=== PATIENT | male | born 1960 | race Caucasian/White ===

== ENCOUNTER 2017-02-08 10:01 | Inpatient (IN) | payer MEDICAID ==
--- NOTE | 2017-02-08 10:13 | EDPHY ---
H & P Time Seen by Provider: 02/08/17 10:12 HPI/ROS: CHIEF COMPLAINT: Cough and shortness of breath HISTORY OF PRESENT ILLNESS: This 56-year-old man has been exposed to his who is currently hospitalized with respiratory infection. He has chronic oxygen -dependent COPD use easily using 4 L. he states that he has a a cough for 3-4 days with increasing shortness of breath and intermittent fevers. Symptoms today are severe but not associated with leg swelling or hemoptysis. It is worse with exertion or trying to lie flat. Denies chest pain. REVIEW OF SYSTEMS: Eye: no change in vision ENT: no sore throat Cardiac: no chest pain or syncope Pulmonary: HPI Abdomen: no vomiting, diarrhea, abdominal pain Musculoskeletal: Chronic back and neck pain unchanged Skin: no rash Neuro: no headache Constitutional: no fever : no urinary symptoms A comprehensive 10 point review of systems is otherwise negative aside from elements mentioned in the history of present illness. PAST MEDICAL HISTORY: Oxygen-dependent COPD, hypertension, chronic back and neck pain Social history: Lives in [place] in the [facility] General Appearance: Alert and conversant, cooperative. Eyes: No scleral icterus. ENT, Mouth: Normal mucous membranes. Respiratory: Decreased lung sounds bilaterally with expiratory wheezing. Mildly tachypneic. Cardiovascular: Regular rate and rhythm. Gastrointestinal: Abdomen is soft and non tender. Neurological: Alert and oriented x3. Normally conversant. Face symmetric, normal movement and sensation in all extremities. Skin: Warm and dry, no rashes. Musculoskeletal: No peripheral edema and no joint swelling. No calf tenderness. Psychiatric: Not agitated. Emergency Department course/MDM: Initially treated with supplemental oxygen, DuoNeb and IV Solu-Medrol for COPD exacerbation. 1130: Re-evaluated, will admit for inpatient treatment of left lower lobe pneumonia in a patient who at baseline has oxygen dependent COPD. Ceftriaxone 1 g and azithromycin 500 mg. Continue nebulizer treatments and steroids supplemental oxygen. 1235: Lactate negative, does not have sepsis or severe sepsis. Smoking Status: Current every day smoker Constitutional: Initial Vital Signs Temperature (C) 36.9 C 02/08/17 10:04 Heart Rate 114 H 02/08/17 10:04 Respiratory Rate 20 02/08/17 10:04 Blood Pressure 154/103 H 02/08/17 10:04 O2 Sat (%) 86 L 02/08/17 10:04 O2 Delivery Mode Nasal Cannula O2 (L/minute) 4 Allergies/Adverse Reactions: HAYFEVER Allergy (Mild, Uncoded 03/13/13 16:43) NASAL CONGESTION Home Medications: Medication Instructions Recorded Albuterol [Proventil Inhaler HFA 2 puffs IH Q4 PRN 01/19/16 (*)] DILTIAZEM HCL [DILTIAZEM 24HR ER] 180 mg PO DAILY 01/19/16 Diazepam [Valium 10 MG (*)] 10 mg PO HS 01/19/16 Fluticasone/Salmeter 250/50Mcg 1 puffs IH BID 01/19/16 [Advair 250/50 (*)] Ipratropium [Atrovent Neb (*)] 0.5 mg IH Q6 PRN 01/19/16 Oxycodone HCl [Roxicodone] 30 mg PO Q6 PRN 01/19/16 Tizanidine HCl [Zanaflex] 4 mg PO TID PRN 01/19/16 morphINE SR [Ms Contin/Oramorph 100 mg PO BID 01/19/16 100 mg (*)] Polyethylene Glycol 3350 [Miralax 17 gm PO DAILY PRN #0 pkt 03/17/16 17 gm (*)] Lidocaine [Lidoderm] 1 each TP 02/08/17 Medical Decision Making - Diagnostics Imaging: Chest x-ray reviewed personally by myself shows left lower lobe pneumonia, reviewed with Dr. Cortez. Differential Diagnosis: Differential diagnosis considered for shortness of breath including but not limited to pulmonary infectious process, COPD, asthma, pulmonary embolus and congestive heart failure. Consult/Admit Bed Type: [place] [id number] - Data Points Laboratory Results: Laboratory Results 02/08/17 10:25 02/08/17 10:25 02/08/17 02/08/17 02/08/17 10:25 10:25 10:25 WBC RBC Hgb Hct MCV MCH MCHC RDW Plt Count MPV Neut % (Auto) Lymph % (Auto) [place] % (Auto) Eos % (Auto) Baso % (Auto) Nucleat RBC Rel Count Absolute Neuts (auto) Absolute Lymphs (auto) Absolute Monos (auto) Absolute Eos (auto) Absolute Basos (auto) Absolute Nucleated RBC Immature Gran % Immature Gran # PT 12.0 SEC SEC (12.0-15.0) INR 0.90 (0.83-1.16) APTT 29.4 SEC SEC (23.0-38.0) Sodium 136 mEq/L mEq/L (134-144) Potassium 4.5 mEq/L mEq/L (3.5-5.2) Chloride 99 mEq/L mEq/L (97-110) Carbon Dioxide 28 mEq/l mEq/l (22-31) Anion Gap 9 mEq/L mEq/L (8-16) BUN 4 mg/dL L mg/dL (7-23) Creatinine 0.5 mg/dL L mg/dL (0.7-1.3) Estimated GFR > 60 Glucose 114 mg/dL H mg/dL (70-100) Calcium 9.7 mg/dL mg/dL (8.5-10.4) Total Bilirubin 1.0 mg/dL mg/dL (0.1-1.4) 02/08/17 10:25 WBC 11.84 10^3/uL H 10^3/uL (3.80-9.50) RBC 4.56 10^6/uL 10^6/uL (4.40-6.38) Hgb 14.9 g/dL g/dL (13.7-17.5) Hct 42.6 % % (40.0-51.0) MCV 93.4 fL fL (81.5-99.8) MCH 32.7 pg pg (27.9-34.1) MCHC 35.0 g/dL g/dL (32.4-36.7) RDW 12.8 % % (11.5-15.2) Plt Count 300 10^3/uL 10^3/uL (150-400) MPV 11.0 fL fL (8.7-11.7) Neut % (Auto) 75.9 % H % (39.3-74.2) Lymph % (Auto) 10.6 % L % (15.0-45.0) [place] % (Auto) 9.9 % % (4.5-13.0) Eos % (Auto) 2.8 % % (0.6-7.6) Baso % (Auto) 0.5 % % (0.3-1.7) Nucleat RBC Rel Count 0.0 % % (0.0-0.2) Absolute Neuts (auto) 8.99 10^3/uL H 10^3/uL (1.70-6.50) Absolute Lymphs (auto) 1.25 10^3/uL 10^3/uL (1.00-3.00) Absolute Monos (auto) 1.17 10^3/uL H 10^3/uL (0.30-0.80) Absolute Eos (auto) 0.33 10^3/uL 10^3/uL (0.03-0.40) Absolute Basos (auto) 0.06 10^3/uL 10^3/uL (0.02-0.10) Absolute Nucleated RBC 0.00 10^3/uL 10^3/uL (0-0.01) Immature Gran % 0.3 % % (0.0-1.1) Immature Gran # 0.04 10^3/uL 10^3/uL (0.00-0.10) PT INR APTT Sodium Potassium Chloride Carbon Dioxide Anion Gap BUN Creatinine Estimated GFR Glucose Calcium Total Bilirubin Medications Given: Discontinued Medications Albuterol/Ipratropium (Duoneb) 3 ml IH EDNOW ONE Stop: 02/08/17 10:22 Last Admin: 02/08/17 10:54 Dose: 3 ml Sodium Chloride (Ns) 500 mls @ 0 mls/hr IV ONCE ONE PRN Reason: As Directed Stop: 02/08/17 10:22 Last Admin: 02/08/17 11:30 Dose: 500 mls Azithromycin 500 mg/ Dextrose 255 mls @ 255 mls/hr IV EDNOW ONE PRN Reason: Protocol Stop: 02/08/17 12:27 Last Admin: 02/08/17 13:11 Dose: 255 mls Ceftriaxone Sodium/Dextrose (Rocephin 1 Gm (Premix)) 50 mls @ 100 mls/hr IV EDNOW ONE PRN Reason: Protocol Stop: 02/08/17 11:57 Last Admin: 02/08/17 12:15 Dose: 50 mls Methylprednisolone Sodium Succinate (Solu-Medrol) 125 mg IVP EDNOW ONE Stop: 02/08/17 10:22 Last Admin: 02/08/17 10:53 Dose: 125 mg Departure - Departure Disposition: [facility] Clinical Impression: Chronic obstructive pulmonary disease with acute exacerbation Pneumonia Qualifiers: Pneumonia type: due to unspecified organism Laterality: left Lung location: lower lobe of lung Qualified Code(s): J18.1 - Lobar pneumonia, unspecified organism Condition: Fair
[2017-02-08] MEDS ORDERED: IPRATROPIUM/ALBUTEROL 3 ML DEYVIAL IH ONE (10:21)
[2017-02-08] MEDS ORDERED: methylPREDNISolone SOD SUCC 125 MG/2 ML VIAL IVP ONE (10:21)
[2017-02-08] MEDS ORDERED: NS 500 ML IV ONE (10:21)
[2017-02-08 10:35] LABS: % IMMATURE GRANULYOCYTES 0.3 % (0.0-1.1); ABSOLUTE IMMATURE GRANULOCYTES 0.04 10^3/uL (0.00-0.10); ADD DIFF? NO; ADD MORPH? NO; ADD SCAN? NO; ATYPICAL LYMPHOCYTE FLAG 10 (0-99); FRAGMENT RBC FLAG 0 (0-99); HEMATOCRIT 42.6 % (40.0-51.0); HEMOGLOBIN 14.9 g/dL (13.7-17.5); LEFT SHIFT FLG 0 (0-99); LIPEMIA HEMOLYSIS FLAG 90 (0-99); MEAN CELL HEMOGLOBIN 32.7 pg (27.9-34.1); MEAN CELL VOLUME 93.4 fL (81.5-99.8); PLATELET CLUMPS FLAG 10 (0-99); PLATELET COUNT 300 10^3/uL (150-400); RED BLOOD CELL COUNT 4.56 10^6/uL (4.40-6.38); RED CELL DISTRIBUTION WIDTH 12.8 % (11.5-15.2)
[2017-02-08 10:57] LABS: ANION GAP 9 mEq/L (8-16); CALCIUM 9.7 mg/dL (8.5-10.4); CARBON DIOXIDE 28 mEq/l (22-31); CHLORIDE 99 mEq/L (97-110); CREATININE 0.5 mg/dL (0.7-1.3); GLOMERULAR FILTRATION RATE > 60; GLUCOSE 114 mg/dL (70-100); POTASSIUM 4.5 mEq/L (3.5-5.2); SODIUM 136 mEq/L (134-144)
[2017-02-08] MEDS ORDERED: AZITHROMYCIN IV 500 MG in D5W 250 ML IV ONE (11:28)
[2017-02-08 11:43] LABS: APTT 29.4 SEC (23.0-38.0); INR 0.9 (0.83-1.16)
[2017-02-08] MEDS ORDERED: ONDANSETRON 4 MG/2 ML VIAL IVP PRN (11:47)
[2017-02-08] MEDS ORDERED: ONDANSETRON DISINTEGRATING 4 MG TAB PO PRN (11:47)
[2017-02-08] MEDS ORDERED: ACETAMINOPHEN 325 MG TAB PO PRN (11:47)
[2017-02-08] MEDS ORDERED: NS 1,000 ML IV ONE (13:43)
[2017-02-08] MEDS ORDERED: ALBUTEROL 3 ML DEYVIAL IH PRN (13:46)
--- NOTE | 2017-02-08 14:26 | GHP ---
[f rep st] HISTORY AND PHYSICAL DATE OF ADMISSION: 02/08/2017 CHIEF COMPLAINT: Shortness of breath. HISTORY OF PRESENT ILLNESS: A 56-year-old male with oxygen-dependent COPD, who presents to the [facility] with complaints of 4 days of progressing shortness of breath and cough. Patient ochoa s recently been a visitor in the hospital for his significant other who has been admitted with pneum onia. Patient noted that he was additionally having increasing shortness of breath and they were at elevation. He did come down to [place] to keep his significant other company in the hospital and n oted, in the last 24 hours, that his shortness of breath even at lower elevation has been markedly s evere. He describes a worsening of a chronic cough now productive of some discolored sputum. Has h ad some subjective fevers and chills. Denies any hemoptysis. Patient reports using approximately 4 L of supplemental oxygen up in [place] and at that level has oxygen saturations in the high 80s, noted that he was requiring even more oxygen as he came down here. Patient denies any nausea or vom iting. Denies abdominal pain. Denies diarrhea, denies rashes, denies dysuria, hematuria, headache, or vision changes. PAST MEDICAL HISTORY: 1. COPD oxygen dependent on 4 L. 2. Chronic hypoxic respiratory failure secondary to COPD. 3. Hypertension. 4. Anxiety. 5. History of alcohol induced pancreatitis. 6. 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 SOCIAL HISTORY: Patient has markedly decreased his tobacco to 3-4 cigarettes a day. Previously a 4 0-50 pack-year history of smoking. Patient tells me he drinks intermittent alcohol, takes marijuana eatables regularly. FAMILY HISTORY: Positive for colon cancer in his brother, negative for any known lung disease. ADVANCED DIRECTIVES: Patient is full cor, full tube. He would want his significant other to be his medical decision maker. REVIEW OF SYSTEMS: A 10-point review of systems is negative with the exception of that reported in the HPI. PHYSICAL EXAMINATION: VITAL SIGNS: Blood pressure 154/103, heart rate 114, respiratory rate 20, sa turating 86% on room air, 36.9. GENERAL: This is a thin-appearing male in mild respiratory distres s. Patient has a visible tremor. HEENT: Notable for dry mucous membranes. Eye exam is negative fo r any icterus. CARDIAC: Patient is tachycardic but regular. PULMONARY: Patient has diminished br eath sounds at the bilateral bases. Has expiratory wheezing, left greater than right. GASTROINTEST INAL: Positive bowel sounds. ABDOMEN: Soft and nontender in all 4 quadrants. MUSCULOSKELETAL: N egative for any lower extremity edema. SKIN: Is negative for any rashes. NEUROLOGIC: Patient is a lert and oriented x3. PSYCHIATRIC: He is pleasant and cooperative on interview and examination. DATA: White count is 12, hematocrit 42.6, platelet count of 300, creatinine 0.5, sodium 136, glucos e 114. Chest x-ray which I personally reviewed and interpreted, shows a new left-sided lower lobe infiltrat e with hyperexpansion consistent with his known COPD. ASSESSMENT AND PLAN: This is a 56-year-old male with a history of chronic obstructive pulmonary dis ease presenting with new cough and hypoxia. 1. Sepsis. Patient is presenting with tachycardia, leukocytosis and presumed pulmonary source. Wi ll obtain blood cultures in the emergency department. Start empiric IV antibiotics and fluid resusc itate with normal saline. 2. Community-acquired pneumonia. Patient's significant other is also on my medical team. We have confirmed that she does not have influenza, no clear pathogen identified. Will follow blood culture s and check influenza on patient. 3. Acute on chronic hypoxic respiratory failure secondary to COPD and community-acquired pneumonia. Will aggressively treat with inhaled beta agonists on steroids. Patient is quite wheezy on examin ation. Will additionally treat with oral prednisone and IV antibiotics. 4. History of alcohol abuse with active tremor on examination. Patient stayed the night in the [facility] so I know he has been over 12 hours away from alcohol. I am concerned he is not sharing an ac curate alcohol history with me. Will place a CIWA protocol in case he develops alcohol withdrawal an d monitor. 5. Chronic pain with continuous narcotic dependency. Will continue patient's home medications once reconciled. 6. Hypertension. Will continue his home medications once reconciled. Prophylaxis with Lovenox. DIET: Regular. DISPOSITION: I expect greater than 2 midnights as the patient is presenting with advanced COPD and a new diagnosis of community-acquired pneumonia and sepsis. I have discussed the case with the [facility] physician. Patient will be triaged to the medical-surgical floor for care. /[id number]/MODL
[2017-02-08] MEDS ORDERED: LORazepam 1 MG TAB PO PRN (15:29)
[2017-02-08] MEDS ORDERED: chlordiazePOXIDE 25 MG CAP PO ONE (15:29)
[2017-02-08] MEDS ORDERED: POLYETHYLENE GLYCOL 3350 17 GM PKT PO PRN (15:31)
[2017-02-08] MEDS: guaiFENesin 600 MG TAB.ER PO SCH ×2 (15:57→22:03)
[2017-02-08] MEDS: CALCIUM CARBONATE 500 MG TAB PO SCH ×2 (15:58→22:02)
[2017-02-08] MEDS: BUDESONIDE 0.5 MG/2 ML AMPUL.NEB IH SCH ×2 (16:08→20:40)
[2017-02-08] MEDS: IPRATROPIUM/ALBUTEROL 3 ML DEYVIAL IH SCH ×2 (16:30→20:40)
[2017-02-08] MEDS: NICOTINE 14 MG/24 HR PATCH TD SCH (16:42)
[2017-02-08] MEDS: PATCH REMOVAL 1 EA PATCH TD SCH (20:09)
[2017-02-08] MEDS: FLUTICASONE/SALMETER 250/50MCG DISKUS IH SCH (20:44)
[2017-02-08] MEDS: morphINE SR 60 MG TAB PO SCH (22:02)
[2017-02-08] MEDS: DIAZEPAM 5 MG TAB PO SCH (22:03)
[2017-02-08] MEDS: CHOLECALCIFEROL VIT D3 1,000 UNITS TAB PO SCH (22:03)
[2017-02-09 05:07] LABS: % IMMATURE GRANULYOCYTES 0.6 % (0.0-1.1); ABSOLUTE IMMATURE GRANULOCYTES 0.06 10^3/uL (0.00-0.10); ADD DIFF? NO; ADD MORPH? NO; ADD SCAN? NO; ATYPICAL LYMPHOCYTE FLAG 0 (0-99); FRAGMENT RBC FLAG 0 (0-99); HEMATOCRIT 38.2 % (40.0-51.0); HEMOGLOBIN 13.2 g/dL (13.7-17.5); LEFT SHIFT FLG 20 (0-99); LIPEMIA HEMOLYSIS FLAG 90 (0-99); MEAN CELL HEMOGLOBIN 32.3 pg (27.9-34.1); MEAN CELL HEMOGLOBIN CONCENTR. 34.6 g/dL (32.4-36.7); MEAN CELL VOLUME 93.4 fL (81.5-99.8); MEAN PLATELET VOLUME 11.1 fL (8.7-11.7); PLATELET CLUMPS FLAG 0 (0-99); PLATELET COUNT 260 10^3/uL (150-400); RED BLOOD CELL COUNT 4.09 10^6/uL (4.40-6.38); RED CELL DISTRIBUTION WIDTH 12.7 % (11.5-15.2)
[2017-02-09 05:19] LABS: ANION GAP 6 mEq/L (8-16); CALCIUM 9.1 mg/dL (8.5-10.4); CARBON DIOXIDE 27 mEq/l (22-31); CHLORIDE 105 mEq/L (97-110); CREATININE 0.4 mg/dL (0.7-1.3); GLOMERULAR FILTRATION RATE > 60; GLUCOSE 183 mg/dL (70-100); POTASSIUM 3.6 mEq/L (3.5-5.2); SODIUM 138 mEq/L (134-144)
[2017-02-09] MEDS: IPRATROPIUM/ALBUTEROL 3 ML DEYVIAL IH SCH ×4 (05:37→21:33)
[2017-02-09] MEDS: CALCIUM CARBONATE 500 MG TAB PO SCH ×3 (08:30→21:06)
[2017-02-09] MEDS: CHOLECALCIFEROL VIT D3 1,000 UNITS TAB PO SCH ×2 (08:30→21:06)
[2017-02-09] MEDS: DILTIAZEM CD 180 MG CAP PO SCH (08:30)
[2017-02-09] MEDS: morphINE SR 60 MG TAB PO SCH ×2 (08:30→21:06)
[2017-02-09] MEDS: predniSONE 20 MG TAB PO SCH (08:30)
[2017-02-09] MEDS: guaiFENesin 600 MG TAB.ER PO SCH ×2 (08:36→21:07)
[2017-02-09] MEDS: LIDOCAINE 5% 1 EA PATCH TD SCH (08:40)
[2017-02-09] MEDS: NICOTINE 14 MG/24 HR PATCH TD SCH (08:41)
[2017-02-09] MEDS: ENOXAPARIN 40 MG/0.4 ML SYR SC SCH (08:43)
[2017-02-09] MEDS ORDERED: Herbals/Supplements -Info Only PO SCH (09:00)
[2017-02-09] MEDS: AZITHROMYCIN IV 500 MG in D5W 250 ML IV SCH (09:30)
[2017-02-09] MEDS: BUDESONIDE 0.5 MG/2 ML AMPUL.NEB IH SCH ×2 (11:28→21:32)
[2017-02-09] MEDS: FLUTICASONE/SALMETER 250/50MCG DISKUS IH SCH ×2 (11:29→21:37)
[2017-02-09] MEDS ORDERED: MAGNESIUM HYDROXIDE 30 ML UDCUP PO PRN (15:07)
[2017-02-09] MEDS ORDERED: LACTULOSE 20 GM/30 ML UDCUP PO PRN (15:07)
[2017-02-09] MEDS ORDERED: BISACODYL 10 MG SUPP PR PRN (15:07)
[2017-02-09] MEDS: PANTOPRAZOLE SODIUM 40 MG TAB PO SCH (15:35)
--- NOTE | 2017-02-09 15:43 | HOSPPROG ---
Hospitalist Progress Note Assessment/Plan: This is a 56-year-old male with a history of chronic obstructive pulmonary disease presenting with new cough and hypoxia. # Sepsis- Patient is presenting with tachycardia, leukocytosis and presumed pulmonary source- tachycardia and leukocytosis 9.6 both improved overnight blood cultures NGTD - continue IV fluid resuscitation until p.o. intake adequate - continue empiric antibiotics # Community-acquired pneumonia - chest x-ray( personally reviewed and interpreted) left-sided infiltrate- influenza negative - continue IV ceftriaxone azithromycin - follow blood cultures # Acute on chronic hypoxic respiratory failure secondary to COPD and community- acquired pneumonia- subjective dyspnea improved overnight at rest- wheezing improved but not resolved- oxygen saturations 94% on 2 L - continue aggressive inhaled pulmonary toilet - continue p.o. prednisone - continue empiric antibiotics - suspect patient's oxygen requirements will be higher at elevation- he has concentrator at home are ready # History of alcohol abuse with active tremor on admission- empirically given Librium bolus of 50 mg upon arrival to the floor- tremor improved this morning - continue p.r.n. CIWA protocol # Chronic pain with continuous narcotic dependency- continue patient's home medications - adding aggressive bowel regimen today . # Hypertension- continue his home medications # Prophylaxis with Lovenox # diet regular # disposition greater than 2 midnights the patient presents with oxygen- dependent COPD in new diagnosis sepsis with community-acquired pneumonia requires more aggressive pulmonary care and monitoring I have discussed the case with the RN- we will add a more aggressive bowel regimen and Protonix is prednisone upset the patient's stomach when he takes it we anticipate disposition tomorrow with his who is also hospitalized for pneumonia. Subjective: breathing at rest markedly improved remains very dyspneic walking to the bathroom Objective: Vital Signs Temp Pulse Resp BP Pulse Ox 36.3 C 97 20 141/76 H 94 02/09/17 12:00 02/09/17 12:00 02/09/17 12:00 02/09/17 12:00 02/09/17 12:00 Laboratory Results 02/09/17 04:45 02/09/17 04:45 02/08/17 02/09/17 02/10/17 05:59 05:59 05:59 Intake Total 1500 Balance 1500 PT 12.0 SEC (12.0-15.0) 02/08/17 10:25 INR 0.90 (0.83-1.16) 02/08/17 10:25 - Physical Exam Constitutional: cachectic Eyes: anicteric sclera Ears, Nose, Mouth, Throat: moist mucous membranes Cardiovascular: regular rate and rhythym Respiratory: no respiratory distress, expiratory wheeze, other ( improved) Gastrointestinal: normoactive bowel sounds Genitourinary: no bladder fullness Skin: warm, normal color Musculoskeletal: No asymmetric calves Neurologic: AAOx3, other ( diminished tremor) Psychiatric: interacting appropriately, not anxious Lymph, Heme, Immunologic: no cervical LAD ICD10 Worksheet Patient Problems: Problems Problem Status Onset Chronic obstructive pulmonary disease with acute exacerbation Acute Pneumonia Acute Back pain Acute
[2017-02-09] MEDS: PATCH REMOVAL 1 EA PATCH TD SCH (19:51)
[2017-02-09] MEDS: SENNOSIDES/DOCUSATE SODIUM TAB PO SCH (21:06)
[2017-02-09] MEDS: DIAZEPAM 5 MG TAB PO SCH (21:06)
[2017-02-10] MEDS: IPRATROPIUM/ALBUTEROL 3 ML DEYVIAL IH SCH ×4 (05:28→21:40)
[2017-02-10 05:45] LABS: % IMMATURE GRANULYOCYTES 0.4 % (0.0-1.1); ABSOLUTE IMMATURE GRANULOCYTES 0.05 10^3/uL (0.00-0.10); ADD DIFF? NO; ADD MORPH? NO; ADD SCAN? NO; ATYPICAL LYMPHOCYTE FLAG 10 (0-99); FRAGMENT RBC FLAG 0 (0-99); HEMATOCRIT 38.7 % (40.0-51.0); HEMOGLOBIN 13.4 g/dL (13.7-17.5); LEFT SHIFT FLG 0 (0-99); LIPEMIA HEMOLYSIS FLAG 90 (0-99); MEAN CELL HEMOGLOBIN CONCENTR. 34.6 g/dL (32.4-36.7); MEAN CELL VOLUME 92.4 fL (81.5-99.8); MEAN PLATELET VOLUME 10.7 fL (8.7-11.7); PLATELET CLUMPS FLAG 0 (0-99); PLATELET COUNT 303 10^3/uL (150-400); RED BLOOD CELL COUNT 4.19 10^6/uL (4.40-6.38)
[2017-02-10 05:55] LABS: ANION GAP 8 mEq/L (8-16); CALCIUM 9.5 mg/dL (8.5-10.4); CARBON DIOXIDE 28 mEq/l (22-31); CHLORIDE 105 mEq/L (97-110); CREATININE 0.5 mg/dL (0.7-1.3); GLOMERULAR FILTRATION RATE > 60; GLUCOSE 98 mg/dL (70-100); MAGNESIUM 2.1 mg/dL (1.6-2.3); POTASSIUM 3.8 mEq/L (3.5-5.2); SODIUM 141 mEq/L (134-144)
--- NOTE | 2017-02-10 08:57 | HOSPPROG ---
Hospitalist Progress Note Assessment/Plan: This is a 56-year-old male with a history of chronic obstructive pulmonary disease presenting with new cough and hypoxia. Today is my first encounter with the patient/chart reviewed. # Sepsis- - wbc increased today to 11.5 (likely secondary to prednisone)/ no longer tachycardic - blood cultures NGTD - dc fluids/ eating and drinking well - continue empiric antibiotics # Community-acquired pneumonia - chest x-ray shows a left-sided infiltrate - continue IV ceftriaxone &azithromycin - follow blood cultures - negative for the influenza # Acute on chronic hypoxic respiratory failure secondary to COPD and community- acquired pneumonia- - 88% on room air - continue aggressive inhaled pulmonary toilet - continue p.o. prednisone - continue empiric antibiotics - suspect patient's oxygen requirements will be higher at elevation- has concentrator at home # History of alcohol abuse with active tremor on admission- empirically given Librium bolus of 50 mg upon arrival to the floor- tremor improved this morning - continue p.r.n. CIWA protocol # Chronic pain with continuous narcotic dependency- continue patient's home medications - bowel regimen . # Hypertension-stable - bp 107/67 # Prophylaxis with Lovenox # diet regular # disposition: hopefully if continues to improve, will dc in the a.m. Subjective: Gerry says he is starting to feel better today/ still short of breath. Objective: Vital Signs Temp Pulse Resp BP Pulse Ox 36.6 C 83 17 107/67 88 L 02/09/17 23:17 02/09/17 23:17 02/09/17 23:17 02/09/17 23:17 02/09/17 23:17 Laboratory Results 02/10/17 05:27 02/10/17 05:27 02/09/17 02/10/17 02/11/17 05:59 05:59 05:59 Intake Total 1500 Balance 1500 PT 12.0 SEC (12.0-15.0) 02/08/17 10:25 INR 0.90 (0.83-1.16) 02/08/17 10:25 - Physical Exam Constitutional: no apparent distress, other (thin) Eyes: PERRL Ears, Nose, Mouth, Throat: hearing normal Cardiovascular: regular rate and rhythym Respiratory: no respiratory distress, reduced air movement (bibasilar) Gastrointestinal: normoactive bowel sounds Skin: warm Musculoskeletal: full muscle strength Neurologic: AAOx3 Psychiatric: interacting appropriately, not anxious ICD10 Worksheet Patient Problems: Problems Problem Status Onset Chronic obstructive pulmonary disease with acute exacerbation Acute Pneumonia Acute Back pain Acute
[2017-02-10] MEDS: LIDOCAINE 5% 1 EA PATCH TD SCH (09:14)
[2017-02-10] MEDS: ENOXAPARIN 40 MG/0.4 ML SYR SC SCH (09:14)
[2017-02-10] MEDS: NICOTINE 14 MG/24 HR PATCH TD SCH (09:14)
[2017-02-10] MEDS: CALCIUM CARBONATE 500 MG TAB PO SCH ×3 (09:15→21:15)
[2017-02-10] MEDS: PANTOPRAZOLE SODIUM 40 MG TAB PO SCH (09:15)
[2017-02-10] MEDS: SENNOSIDES/DOCUSATE SODIUM TAB PO SCH ×2 (09:15→21:16)
[2017-02-10] MEDS: morphINE SR 60 MG TAB PO SCH ×2 (09:15→21:15)
[2017-02-10] MEDS: DILTIAZEM CD 180 MG CAP PO SCH (09:15)
[2017-02-10] MEDS: predniSONE 20 MG TAB PO SCH (09:16)
[2017-02-10] MEDS: CHOLECALCIFEROL VIT D3 1,000 UNITS TAB PO SCH ×2 (09:16→21:15)
[2017-02-10] MEDS: guaiFENesin 600 MG TAB.ER PO SCH ×2 (09:16→21:15)
[2017-02-10] MEDS: AZITHROMYCIN IV 500 MG in D5W 250 ML IV SCH (09:55)
[2017-02-10] MEDS: BUDESONIDE 0.5 MG/2 ML AMPUL.NEB IH SCH ×2 (11:31→21:41)
[2017-02-10] MEDS: FLUTICASONE/SALMETER 250/50MCG DISKUS IH SCH ×2 (11:52→21:41)
[2017-02-10] MEDS: DIAZEPAM 5 MG TAB PO SCH (21:15)
[2017-02-10] MEDS: PATCH REMOVAL 1 EA PATCH TD SCH (23:08)
[2017-02-11 05:11] LABS: % IMMATURE GRANULYOCYTES 0.5 % (0.0-1.1); ABSOLUTE IMMATURE GRANULOCYTES 0.04 10^3/uL (0.00-0.10); ADD DIFF? NO; ADD MORPH? NO; ADD SCAN? NO; ATYPICAL LYMPHOCYTE FLAG 30 (0-99); FRAGMENT RBC FLAG 0 (0-99); HEMATOCRIT 38.6 % (40.0-51.0); HEMOGLOBIN 13.3 g/dL (13.7-17.5); LEFT SHIFT FLG 0 (0-99); LIPEMIA HEMOLYSIS FLAG 90 (0-99); MEAN CELL HEMOGLOBIN 32.5 pg (27.9-34.1); MEAN CELL HEMOGLOBIN CONCENTR. 34.5 g/dL (32.4-36.7); MEAN CELL VOLUME 94.4 fL (81.5-99.8); MEAN PLATELET VOLUME 10.6 fL (8.7-11.7); PLATELET CLUMPS FLAG 20 (0-99); PLATELET COUNT 302 10^3/uL (150-400); RED BLOOD CELL COUNT 4.09 10^6/uL (4.40-6.38)
[2017-02-11 05:37] LABS: POTASSIUM 3.8 mEq/L (3.5-5.2)
[2017-02-11 05:38] LABS: ANION GAP 6 mEq/L (8-16); CALCIUM 9.4 mg/dL (8.5-10.4); CARBON DIOXIDE 27 mEq/l (22-31); CHLORIDE 104 mEq/L (97-110); CREATININE 0.5 mg/dL (0.7-1.3); GLOMERULAR FILTRATION RATE > 60; GLUCOSE 102 mg/dL (70-100); MAGNESIUM 2.1 mg/dL (1.6-2.3); SODIUM 137 mEq/L (134-144)
[2017-02-11] MEDS: IPRATROPIUM/ALBUTEROL 3 ML DEYVIAL IH SCH ×2 (06:14→10:53)
[2017-02-11] MEDS: morphINE SR 60 MG TAB PO SCH (08:11)
[2017-02-11] MEDS: guaiFENesin 600 MG TAB.ER PO SCH (08:11)
[2017-02-11] MEDS: CALCIUM CARBONATE 500 MG TAB PO SCH (08:12)
[2017-02-11] MEDS: DILTIAZEM CD 180 MG CAP PO SCH (08:12)
[2017-02-11] MEDS: PANTOPRAZOLE SODIUM 40 MG TAB PO SCH (08:13)
[2017-02-11] MEDS: CHOLECALCIFEROL VIT D3 1,000 UNITS TAB PO SCH (08:14)
[2017-02-11] MEDS: SENNOSIDES/DOCUSATE SODIUM TAB PO SCH (08:14)
[2017-02-11] MEDS: predniSONE 20 MG TAB PO SCH (08:14)
[2017-02-11] MEDS: NICOTINE 14 MG/24 HR PATCH TD SCH (08:15)
[2017-02-11] MEDS: ENOXAPARIN 40 MG/0.4 ML SYR SC SCH (08:16)
[2017-02-11] MEDS: LIDOCAINE 5% 1 EA PATCH TD SCH (08:17)
[2017-02-11 08:48] VITALS: BP 143/98; RESP 16; TEMP 97.8
[2017-02-11] MEDS ORDERED: THIAMINE HCL 100 MG TAB PO SCH (09:00)
[2017-02-11] MEDS: AZITHROMYCIN IV 500 MG in D5W 250 ML IV SCH (09:20)
--- NOTE | 2017-02-11 09:52 | HOSPPROG ---
Hospitalist Progress Note Assessment/Plan: This is a 56-year-old male with a history of chronic obstructive pulmonary disease presenting with new cough and hypoxia. # Sepsis- - wbc increased to 11.5 (likely secondary to prednisone)/ no longer tachycardic - blood cultures NGTD # Community-acquired pneumonia - chest x-ray shows a left-sided infiltrate - continue IV ceftriaxone &azithromycins - negative for the influenza # Acute on chronic hypoxic respiratory failure secondary to COPD and community- acquired pneumonia- - continue p.o. prednisone - continue empiric antibiotics - suspect patient's oxygen requirements will be higher at elevation- has concentrator at home # History of alcohol abuse with active tremor on admission- empirically given Librium bolus of 50 mg upon arrival to the floor- tremor improved this morning - continue p.r.n. CIWA protocol # Chronic pain with continuous narcotic dependency- continue patient's home medications - bowel regimen . # Hypertension-stable - bp 143/98 # Prophylaxis with Lovenox # diet regular # disposition: dc Subjective: Bryan is feeling much better today. Objective: Vital Signs Temp Pulse Resp BP Pulse Ox 36.6 C 93 16 143/98 H 95 02/11/17 08:43 02/11/17 08:43 02/11/17 08:43 02/11/17 08:43 02/11/17 08:43 Laboratory Results 02/11/17 05:00 02/11/17 05:01 PT 12.0 SEC (12.0-15.0) 02/08/17 10:25 INR 0.90 (0.83-1.16) 02/08/17 10:25 - Physical Exam Constitutional: no apparent distress, not in pain Eyes: PERRL Ears, Nose, Mouth, Throat: hearing normal Cardiovascular: regular rate and rhythym Respiratory: no respiratory distress, reduced air movement (bases) Gastrointestinal: normoactive bowel sounds Skin: warm Musculoskeletal: full muscle strength Neurologic: AAOx3 Psychiatric: interacting appropriately ICD10 Worksheet Patient Problems: Problems Problem Status Onset Chronic obstructive pulmonary disease with acute exacerbation Acute Pneumonia Acute Back pain Acute
--- NOTE | 2017-02-11 10:29 | GDS ---
[f rep st] DISCHARGE SUMMARY DISCHARGE DIAGNOSES: 1. Sepsis. 2. Community-acquired pneumonia. 3. Acute on chronic hypoxic respiratory failure secondary to chronic obstructive pulmonary disease and community-acquired pneumonia. 4. History of alcohol abuse with tremor on admission. 5. Chronic pain with continuous narcotic dependency. 6. Hypertension. HISTORY: Briefly, the patient is a 56-year-old male who has oxygen-dependent COPD, who presented to the emergency department with complaints of 4 days of progressing shortness of breath and cough. He had been a visitor in the hospital for his significant other, who was admitted for pneumonia. He noted that he was having increasing shortness of breath. He describes a chronic cough that was productive and had some subjective fever and chills. He had a chest x-ray, which showed a new left-sided lower lobe infiltrate with hyperexpansion, consistent with his known COPD. He was admitted for further care. HOSPITAL COURSE: 1. Sepsis, resolved. 2. Community-acquired pneumonia. He was checked for the flu, which was negative. He will be discharged home on antibiotics for several more days. 3. Acute on chronic hypoxemic respiratory failure secondary to COPD and community-acquired pneumonia. Will wean him down on the prednisone and continue antibiotics. He has oxygen already set up at home. 4. History of alcohol abuse with active tremor on admission. He has had no further episodes. 5. Chronic pain, with continuous narcotic dependency. Home medication regimen has been continued. 6. Hypertension. Blood pressure is 142/98. PENDING LABS AND TESTS: None. CONDITION ON DISCHARGE: Stable. VITAL SIGNS: Blood pressure is 142/98, heart rate 92, respiratory rate 16. O2 sats on 2 L are 95%. Temperature is 36.6 Celsius. DISCHARGE MEDICATIONS: Please see the EMR. DISCHARGE INSTRUCTIONS: 1. To take it easy while on the Levaquin; it can cause tendon rupture. 2. Hold his Zanaflex while on the Levaquin; it can cause an interaction. 3. Wean off the prednisone. 4. Get a repeat chest x-ray for followup care in 6 weeks. Greater than 30 minutes discharging and coordinating care. /[id number]/MODL MTDD
[2017-02-11] MEDS: BUDESONIDE 0.5 MG/2 ML AMPUL.NEB IH SCH (10:53)
[2017-02-11 11:08] VITALS: PULSE 89; O2SAT 94
[2017-02-11] MEDS: FLUTICASONE/SALMETER 250/50MCG DISKUS IH SCH (11:50)
== END 2017-02-11 12:57 | disposition home or self-care (01) | DRG 871 ==
LOC: F3E 15:23
PROVIDERS: ADMIT Hospitalist; ATTEND Hospitalist
DX: A41.9 Sepsis, unspecified organism (principal); J96.21 Acute and chronic respiratory failure with hypoxia; J18.8 Other pneumonia, unspecified organism; F11.20 Opioid dependence, uncomplicated; J44.9 Chronic obstructive pulmonary disease, unspecified; G89.29 Other chronic pain; I10 Essential (primary) hypertension; Z99.81 Dependence on supplemental oxygen; Z72.0 Tobacco use; F10.10 Alcohol abuse, uncomplicated; G25.2 Other specified forms of tremor
CPT/HCPCS: 96374; J0456; J0696; J1650; J7626

== ENCOUNTER 2017-10-09 14:22 | Inpatient (IN) | payer MEDICAID ==
--- NOTE | 2017-10-09 14:31 | EDPHY ---
H & P Stated Complaint: fever, SOB starting yesterday Time Seen by Provider: 10/09/17 14:31 - Personal History Current Tetanus/Diphtheria Vaccine: Yes Current Tetanus Diphtheria and Acellular Pertussis (TDAP): Yes Tetanus Vaccine Date: < 10 years - Medical/Surgical History Hx Asthma: No Hx Chronic Respiratory Disease: Yes Hx Diabetes: No Hx Cardiac Disease: Yes Hx Renal Disease: No Hx Cirrhosis: No Hx Alcoholism: No Hx HIV/AIDS: No Hx Splenectomy or Spleen Trauma: No Other PMH: dupentrenz contracture, PMH: COPD, emphysema, HTN chronic back and neck pain, surgery both feet, both hand sx; PNA, osteoporosis - Social History Smoking Status: Current every day smoker Constitutional: Initial Vital Signs Temperature (C) 37.9 C 10/09/17 14:25 Heart Rate 127 H 10/09/17 14:25 Respiratory Rate 20 10/09/17 14:25 Blood Pressure 123/104 H 10/09/17 14:25 O2 Sat (%) 82 L 10/09/17 14:25 O2 Delivery Mode Nasal Cannula O2 (L/minute) 3 Allergies/Adverse Reactions: HAYFEVER Allergy (Mild, Uncoded 10/09/17 14:24) NASAL CONGESTION Home Medications: Medication Instructions Recorded Albuterol [Proventil Inhaler HFA 2 puffs IH Q4 PRN 01/19/16 (*)] DILTIAZEM HCL [DILTIAZEM 24HR ER] 180 mg PO DAILY 01/19/16 Diazepam [Valium 10 MG (*)] 10 mg PO HS 01/19/16 Fluticasone/Salmeter 250/50Mcg 1 puffs IH BID 01/19/16 [Advair 250/50 (*)] Tizanidine HCl [Zanaflex] 4 mg PO TID PRN 01/19/16 Polyethylene Glycol 3350 [Miralax 17 gm PO DAILY PRN #0 pkt 03/17/16 17 gm (*)] Calcium Carbonate [Oyster Shell 500 mg PO TID 02/08/17 Calcium 500 mg (*)] Cholecalciferol Vit D3 [Vitamin D3 1,000 units PO BID 02/08/17 (*)] Lidocaine [Lidoderm] 1 each TP DAILY 02/08/17 morphINE SR [MS Contin/Oramorph 60 1 tab PO BID 02/08/17 mg (*)] Dronabinol [Marinol 2.5 MG (*)] 2.5 mg PO TIDMEAL 10/09/17 Ibuprofen [Motrin (*)] 800 mg PO BID PRN 10/09/17 Multivitamins [Multivitamin (*)] 1 each PO DAILY 10/09/17 Sennosides/Docusate Sodium 1 - 2 tab PO BID PRN 10/09/17 [Senokot-S] Tiotropium Inhaler [Spiriva 1 inh IH BID 10/09/17 Inhaler] oxyCODONE IR [Oxycodone Ir (*)] 20 mg PO Q6HRS PRN 10/09/17 Medical Decision Making - Diagnostics Imaging Results: Imaging Impressions Chest X-Ray 10/09/17 14:35 Impression: Suspect left lower lobe pneumonia rather than atelectasis. Imaging: I viewed and interpreted images myself ED Course/Re-evaluation: CHIEF COMPLAINT: Fever, shortness of breath HISTORY OF PRESENT ILLNESS: This patient is a 57 year old male with history of COPD and emphysema complaining of fever and shortness of breath onset yesterday. Today, his temperature measured at home was 102.4 degrees Fahrenheit. He took 800mg ibuprofen to reduce fever and remains mildly febrile at triage at 100.2 degrees. He is prone to pneumonia due to his pulmonary disease, so presents for evaluation. He is followed at [facility] and finds his symptoms generally well-controlled with Spiriva. He is generally on 2L home oxygen. He endorses continued cigarette use, but is attempting to reduce this. He did receive a flu shot this year. The patient denies chest pain, sore throat, rhinorrhea, vomiting , diarrhea, urinary complaints, or other associated symptoms. REVIEW OF SYSTEMS: A 10 point review of systems was performed and is negative with the exception of the elements mentioned in the history of present illness. PHYSICAL EXAM: HR, BP, O2 Sat, RR. Temp noted General Appearance: Alert, well hydrated, appropriate, and non-toxic appearing. Head: Atraumatic without scalp tenderness or obvious injury Eyes: Pupils equal, round, reactive to light and accommodation, EOMI, no trauma , no injection. Ears: Clear bilaterally, no perforation, normal landmarks Nose: Atraumatic, no rhinorrhea, clear. Throat: There is no erythema or exudates, no lesions, normal tonsils, mucus membranes moist. Neck: Supple, nontender, no lymphadenopathy. Respiratory: Coarse rhonchi throughout, expiratory wheezes with prolonged expiratory period. Cardiovascular: Regular rate and rhythm, no murmurs, rubs, or gallops. Good capillary refill all extremities. Gastrointestinal: Abdomen is soft, nontender, non-distended, no masses, no rebound, no guarding, no peritoneal signs. Musculoskeletal: Normal active ROM of all extremities, atraumatic. Neurological: Alert, appropriate, and interactive. Nonfocal neuro exam. Skin: No rashes, good turgor, no nodules on palpation. Past medical history: COPD, Emphysema, Hypertension, Chronic back and neck pain , Pneumonia, Osteoporosis Past surgical history: Bilateral hand and foot surgery, Family history: Noncontributory. Social history: Current tobacco user. . Lives in [place]. DIFFERENTIAL DIAGNOSIS: The differential diagnosis for the patient's fever included but was not limited to pneumonia, urinary tract infection, viral syndrome, meningitis, and sepsis. MEDICAL DECISION MAKIN57 year old male with history of COPD presents with 24 hour history of fever and shortness of breath. Exam reveals coarse rhonchi throughout, expiratory wheezes with prolonged expiratory period. The patient is generally on 2L home oxygen, but requires 3-4L here in the emergency department to maintain adequate oxygen saturation. Plan for flu swab, chest x-ray. Plan to administer DuoNeb, 10mg IV Decadron for symptom relief. Plan for labs including CBC, chemistries. Reviewed laboratory results. Elevated WBC 20,000. 16:00 Reviewed chest x-ray. Positive for left lower lobe infiltrate. Discussed results with patient. Plan to admit. Plan to administer 500mg IV Zithromax and 1gm IV ceftriaxone. 16:[address] Whitfield, hospitalist. He accepts admission for pneumonia, COPD exacerbation, and hypoxemia. - Data Points Laboratory Results: Laboratory Results 10/09/17 14:39 10/09/17 14:39 10/09/17 10/09/17 10/09/17 15:55 14:39 14:39 WBC RBC Hgb Hct MCV MCH MCHC RDW Plt Count MPV Neut % (Auto) Lymph % (Auto) [place] % (Auto) Eos % (Auto) Baso % (Auto) Nucleat RBC Rel Count Absolute Neuts (auto) Absolute Lymphs (auto) Absolute Monos (auto) Absolute Eos (auto) Absolute Basos (auto) Absolute Nucleated RBC Immature Gran % Immature Gran # PT 12.7 SEC SEC (12.0-15.0) INR 0.96 (0.83-1.16) APTT 28.1 SEC SEC (23.0-38.0) VBG Lactic Acid 1.1 mmol/L mmol/L (0.7-2.1) Sodium Potassium Chloride Carbon Dioxide Anion Gap BUN Creatinine Estimated GFR Glucose Calcium Total Bilirubin 0.9 mg/dL mg/dL (0.1-1.4) Influenza A,B Rapid 10/09/17 10/09/17 10/09/17 14:39 14:39 14:39 WBC 20.21 10^3/uL H 10^3/uL (3.80-9.50) RBC 4.75 10^6/uL 10^6/uL (4.40-6.38) Hgb 15.5 g/dL g/dL (13.7-17.5) Hct 42.9 % % (40.0-51.0) MCV 90.3 fL fL (81.5-99.8) MCH 32.6 pg pg (27.9-34.1) MCHC 36.1 g/dL g/dL (32.4-36.7) RDW 13.2 % % (11.5-15.2) Plt Count 286 10^3/uL 10^3/uL (150-400) MPV 9.9 fL fL (8.7-11.7) Neut % (Auto) 91.5 % H % (39.3-74.2) Lymph % (Auto) 2.7 % L % (15.0-45.0) [place] % (Auto) 4.0 % L % (4.5-13.0) Eos % (Auto) 1.0 % % (0.6-7.6) Baso % (Auto) 0.5 % % (0.3-1.7) Nucleat RBC Rel Count 0.0 % % (0.0-0.2) Absolute Neuts (auto) 18.48 10^3/uL H 10^3/uL (1.70-6.50) Absolute Lymphs (auto) 0.55 10^3/uL L 10^3/uL (1.00-3.00) Absolute Monos (auto) 0.81 10^3/uL H 10^3/uL (0.30-0.80) Absolute Eos (auto) 0.20 10^3/uL 10^3/uL (0.03-0.40) Absolute Basos (auto) 0.10 10^3/uL 10^3/uL (0.02-0.10) Absolute Nucleated RBC 0.00 10^3/uL 10^3/uL (0-0.01) Immature Gran % 0.3 % % (0.0-1.1) Immature Gran # 0.07 10^3/uL 10^3/uL (0.00-0.10) PT INR APTT VBG Lactic Acid Sodium 132 mEq/L L mEq/L (134-144) Potassium 4.6 mEq/L mEq/L (3.5-5.2) Chloride 97 mEq/L mEq/L (97-110) Carbon Dioxide 25 mEq/l mEq/l (22-31) Anion Gap 10 mEq/L mEq/L (8-16) BUN 6 mg/dL L mg/dL (7-23) Creatinine 0.6 mg/dL L mg/dL (0.7-1.3) Estimated GFR > 60 Glucose 116 mg/dL H mg/dL (70-100) Calcium 9.2 mg/dL mg/dL (8.5-10.4) Total Bilirubin Influenza A,B Rapid Cancelled Medications Given: Discontinued Medications Albuterol/Ipratropium (Duoneb) 3 ml IH EDNOW ONE Stop: 10/09/17 15:02 Last Admin: 10/09/17 15:08 Dose: 3 ml Dexamethasone (Decadron Injection) 10 mg IVP EDNOW ONE Stop: 10/09/17 15:02 Last Admin: 10/09/17 15:08 Dose: 10 mg Ceftriaxone Sodium/Dextrose (Rocephin 1 Gm (Premix)) 50 mls @ 100 mls/hr IV EDNOW ONE PRN Reason: Protocol Stop: 10/09/17 16:17 Last Admin: 10/09/17 16:00 Dose: 50 mls Departure - Departure Disposition: [facility] Clinical Impression: Chronic obstructive pulmonary disease with acute exacerbation, Hypoxemia Pneumonia Qualifiers: Pneumonia type: due to unspecified organism Laterality: left Lung location: lower lobe of lung Qualified Code(s): J18.1 - Lobar pneumonia, unspecified organism Condition: Fair Referrals: CHARBEL LEUNG [Other] - As per Instructions Report Scribed for: Jan Orourke Report Scribed by: Esperanza Arenas Date of Report: 10/09/17 Time of Report: 15:46
[2017-10-09 14:51] LABS: % IMMATURE GRANULYOCYTES 0.3 % (0.0-1.1); ABSOLUTE IMMATURE GRANULOCYTES 0.07 10^3/uL (0.00-0.10); ADD DIFF? NO; ADD MORPH? NO; ADD SCAN? NO; ATYPICAL LYMPHOCYTE FLAG 0 (0-99); FRAGMENT RBC FLAG 0 (0-99); HEMATOCRIT 42.9 % (40.0-51.0); HEMOGLOBIN 15.5 g/dL (13.7-17.5); LEFT SHIFT FLG 0 (0-99); LIPEMIA HEMOLYSIS FLAG 90 (0-99); MEAN CELL HEMOGLOBIN 32.6 pg (27.9-34.1); MEAN CELL HEMOGLOBIN CONCENTR. 36.1 g/dL (32.4-36.7); MEAN CELL VOLUME 90.3 fL (81.5-99.8); MEAN PLATELET VOLUME 9.9 fL (8.7-11.7); PLATELET CLUMPS FLAG 10 (0-99); PLATELET COUNT 286 10^3/uL (150-400); RED BLOOD CELL COUNT 4.75 10^6/uL (4.40-6.38); RED CELL DISTRIBUTION WIDTH 13.2 % (11.5-15.2)
[2017-10-09] MEDS ORDERED: DEXAMETHASONE 10 MG/ML VIAL IVP ONE (15:01)
[2017-10-09] MEDS ORDERED: IPRATROPIUM/ALBUTEROL 3 ML DEYVIAL IH ONE (15:01)
[2017-10-09 15:14] LABS: ANION GAP 10 mEq/L (8-16); CALCIUM 9.2 mg/dL (8.5-10.4); CARBON DIOXIDE 25 mEq/l (22-31); CHLORIDE 97 mEq/L (97-110); CREATININE 0.6 mg/dL (0.7-1.3); GLOMERULAR FILTRATION RATE > 60; GLUCOSE 116 mg/dL (70-100); POTASSIUM 4.6 mEq/L (3.5-5.2); SODIUM 132 mEq/L (134-144)
[2017-10-09] MEDS ORDERED: AZITHROMYCIN IV 500 MG in D5W 250 ML IV ONE (15:48)
[2017-10-09 16:05] LABS: BILIRUBIN,TOTAL 0.9 mg/dL (0.1-1.4)
[2017-10-09 16:06] LABS: INR 0.96 (0.83-1.16); PROTIME(PATIENT) 12.7 SEC (12.0-15.0)
[2017-10-09 16:07] LABS: APTT 28.1 SEC (23.0-38.0)
[2017-10-09] MEDS ORDERED: NICOTINE POLACRILEX 2 MG GUM B PRN (16:46)
[2017-10-09] MEDS ORDERED: ACETAMINOPHEN 325 MG TAB PO PRN (16:46)
[2017-10-09] MEDS ORDERED: ONDANSETRON DISINTEGRATING 4 MG TAB PO PRN (16:46)
[2017-10-09] MEDS ORDERED: ONDANSETRON 4 MG/2 ML VIAL IVP PRN (16:46)
[2017-10-09] MEDS ORDERED: ALBUTEROL 3 ML DEYVIAL IH PRN (16:46)
[2017-10-09] MEDS ORDERED: IOPAMIDOL (ISOVUE 370) 100 ML BTL IV ONE (17:11)
[2017-10-09] MEDS: NS 1,000 ML IV SCH (17:49)
[2017-10-09] MEDS ORDERED: IBUPROFEN 800 MG TAB PO PRN (18:13)
[2017-10-09] MEDS ORDERED: POLYETHYLENE GLYCOL 3350 17 GM PKT PO PRN (18:13)
[2017-10-09] MEDS ORDERED: LIDOCAINE 5% 1 EA PATCH TD PRN (18:13)
--- NOTE | 2017-10-09 18:21 | PDGENHP ---
History and Physical - Chief Complaint Acute fever - History of Present Illness Primary care provider: Rebeka Negro Primary pain management: Jack Jeronimo Primary landscape architect: [facility] HPI: 57-year-old male presenting with acute fever characterized as chills and clammy sensation with associated productive cough of green colored sputum, shortness of breath, onset of symptoms 2 days ago and duration persistent thereafter. Patient reports that shortness of breath is exerted with activity, and has not been particularly alleviated with albuterol nebulizers. He has otherwise been adherent to all of his home medications including recent introduction of Advair and Spiriva. He has a home nebulizer machine in which he uses albuterol. Patient otherwise denies any chest pain, denies any nausea vomiting or diarrhea. He continues to require supplemental oxygen, normally uses 2 L nasal cannula. History Information - Allergies/Home Medication List Allergies/Adverse Reactions: HAYFEVER Allergy (Mild, Uncoded 10/09/17 14:24) NASAL CONGESTION Home Medications: Albuterol [Proventil Inhaler HFA (*)] 2 puffs IH Q4 PRN 01/19/16 [Last Taken ] DILTIAZEM HCL [DILTIAZEM 24HR ER] 180 mg PO DAILY 01/19/16 [Last Taken 02/07/17] Diazepam [Valium 10 MG (*)] 10 mg PO HS 01/19/16 [Last Taken 10/08/17] Fluticasone/Salmeter 250/50Mcg [Advair 250/50 (*)] 1 puffs IH BID 01/19/16 [ Last Taken 10/09/17] Tizanidine HCl [Zanaflex] 4 mg PO TID PRN 01/19/16 [Last Taken 10/08/17] Calcium Carbonate [Oyster Shell Calcium 500 mg (*)] 500 mg PO TID 02/08/17 [ Last Taken 10/08/17] Cholecalciferol Vit D3 [Vitamin D3 (*)] 1,000 units PO DAILY 02/08/17 [Last Taken 10/08/17] Lidocaine [Lidoderm] 1 - 2 each TP DAILY PRN 02/08/17 [Last Taken 02/07/17] morphINE SR [MS Contin/Oramorph 60 mg (*)] 1 tab PO Q12 02/08/17 [Last Taken ] Dronabinol [Marinol 2.5 MG (*)] 2.5 mg PO TIDMEAL 10/09/17 [Last Taken 10/06/17] Ibuprofen [Motrin (*)] 800 mg PO BID PRN 10/09/17 [Last Taken Unknown] Multivitamins [Multivitamin (*)] 1 each PO DAILY 10/09/17 [Last Taken 10/08/17] Sennosides/Docusate Sodium [Senokot-S] 1 - 2 tab PO BID PRN 10/09/17 [Last Taken 09/18/17] Tiotropium Inhaler [Spiriva Inhaler] 1 inh IH BID 10/09/17 [Last Taken 10/09/17] oxyCODONE IR [Oxycodone Ir (*)] 20 mg PO Q6HRS PRN 10/09/17 [Last Taken Unknown] I have personally reviewed and updated: family history, medical history, social history, surgical history - Past Medical History Additional medical history: COPD with chronic hypoxic respiratory failure, 2 L nasal cannula dependent. Chronic pain with continuous opiate dependency - Surgical History Additional surgical history: Hand surgery. Foot surgery. Dupuytren's contracture surgery - Family History Additional family history: No family history of ILD, father with coronary artery disease, colon cancer in a sibling - Social History Smoking Status: Current every day smoker Alcohol Use: Other (Prior history, none presently) Drug Use: Marijuana (Prior history) Additional social history: Independent in ADLs Review of Systems Review of Systems: ROS: 10pt was reviewed & negative except for what was stated in HPI & below Constitutional: Reports: chills, fever, malaise Respiratory: Reports: cough, shortness of breath Physical Exam Physical Exam: Temp Pulse Resp BP Pulse Ox 36.8 C 88 17 116/78 89 L 10/09/17 17:05 10/09/17 17:05 10/09/17 17:05 10/09/17 17:05 10/09/17 17:05 O2 (L/minute) 3 Constitutional: not in pain, chronically ill appearing, other (Thin appearing), No uncomfortable Eyes: PERRL, anicteric sclera, EOMI Ears, Nose, Mouth, Throat: moist mucous membranes, hearing normal, ears appear normal, no oral mucosal ulcers Cardiovascular: tachycardia, No systolic murmur (Distant heart sounds), No irregularly irregular, No edema Respiratory: reduced air movement (On expiration bilaterally, left base), inspiratory crackles (Right base), No expiratory wheeze, No bronchial breath sounds, No respiratory distress Gastrointestinal: normoactive bowel sounds, soft, non-tender abdomen, no palpable masses, No distension Skin: No abrasion, No rash Neurologic: AAOx3, sensation intact bilaterally, No weakness Psychiatric: interacting appropriately, not anxious, not encephalopathic, thought process linear Lab Data & Imaging Review 10/09/17 14:39 10/09/17 14:39 WBC 20.21 10^3/uL (3.80-9.50) H 10/09/17 14:39 RBC 4.75 10^6/uL (4.40-6.38) 10/09/17 14:39 Hgb 15.5 g/dL (13.7-17.5) 10/09/17 14:39 Hct 42.9 % (40.0-51.0) 10/09/17 14:39 MCV 90.3 fL (81.5-99.8) 10/09/17 14:39 MCH 32.6 pg (27.9-34.1) 10/09/17 14:39 MCHC 36.1 g/dL (32.4-36.7) 10/09/17 14:39 RDW 13.2 % (11.5-15.2) 10/09/17 14:39 Plt Count 286 10^3/uL (150-400) 10/09/17 14:39 MPV 9.9 fL (8.7-11.7) 10/09/17 14:39 Neut % (Auto) 91.5 % (39.3-74.2) H 10/09/17 14:39 Lymph % (Auto) 2.7 % (15.0-45.0) L 10/09/17 14:39 [place] % (Auto) 4.0 % (4.5-13.0) L 10/09/17 14:39 Eos % (Auto) 1.0 % (0.6-7.6) 10/09/17 14:39 Baso % (Auto) 0.5 % (0.3-1.7) 10/09/17 14:39 Nucleat RBC Rel Count 0.0 % (0.0-0.2) 10/09/17 14:39 Absolute Neuts (auto) 18.48 10^3/uL (1.70-6.50) H 10/09/17 14:39 Absolute Lymphs (auto) 0.55 10^3/uL (1.00-3.00) L 10/09/17 14:39 Absolute Monos (auto) 0.81 10^3/uL (0.30-0.80) H 10/09/17 14:39 Absolute Eos (auto) 0.20 10^3/uL (0.03-0.40) 10/09/17 14:39 Absolute Basos (auto) 0.10 10^3/uL (0.02-0.10) 10/09/17 14:39 Absolute Nucleated RBC 0.00 10^3/uL (0-0.01) 10/09/17 14:39 Immature Gran % 0.3 % (0.0-1.1) 10/09/17 14:39 Immature Gran # 0.07 10^3/uL (0.00-0.10) 10/09/17 14:39 PT 12.7 SEC (12.0-15.0) 10/09/17 14:39 INR 0.96 (0.83-1.16) 10/09/17 14:39 APTT 28.1 SEC (23.0-38.0) 10/09/17 14:39 VBG Lactic Acid 1.1 mmol/L (0.7-2.1) 10/09/17 15:55 Sodium 132 mEq/L (134-144) L 10/09/17 14:39 Potassium 4.6 mEq/L (3.5-5.2) 10/09/17 14:39 Chloride 97 mEq/L (97-110) 10/09/17 14:39 Carbon Dioxide 25 mEq/l (22-31) 10/09/17 14:39 Anion Gap 10 mEq/L (8-16) 10/09/17 14:39 BUN 6 mg/dL (7-23) L 10/09/17 14:39 Creatinine 0.6 mg/dL (0.7-1.3) L 10/09/17 14:39 Estimated GFR > 60 10/09/17 14:39 Glucose 116 mg/dL (70-100) H 10/09/17 14:39 Calcium 9.2 mg/dL (8.5-10.4) 10/09/17 14:39 Total Bilirubin 0.9 mg/dL (0.1-1.4) 10/09/17 14:39 Influenza A,B Rapid Cancelled 10/09/17 14:39 Visualized and Interpreted Chest x-ray results: Yes Chest X-Ray results: other (Possible left lower lobe infiltrate) Assessment & Plan Assessment: 57-year-old male presenting with acute left lower lobe pneumonia in the setting of chronic hypoxic respiratory failure Plan: 1. Community-acquired pneumonia. Acute, new problem this provider, further workup indicated. Evidenced by left lower lobe infiltrate on chest x-ray, discussed with Dr. Osmel Mandujano and he has reported to me that the patient has extensive mucous plugging in the left lower lobe, most likely consistent with bacterial pneumonia with leukocytosis, tachycardia, chest symptoms -reviewed outside records including 02/11/2017 discharge summary by Lizzy Arce, reports patient was hospitalized for pneumonia, sepsis, COPD exacerbation, discharged home on levofloxacin and prednisone -initiated on ceftriaxone and azithromycin, continue -get sputum cultures, get urine strep get blood cultures, get respiratory viral panel -given patient's underlying concomitant respiratory failure and COPD, will also treat with 40 mg of oral prednisone, x5 days, to reduce duration of pneumonia symptoms, but given that he is not experiencing acute COPD exacerbation, will initiate in a.m. so that we are able to gauge whether patient's white blood cell count improves with the above antibiotics 2. Chronic hypoxic respiratory failure. Patient uses between 2-4 L of supplemental oxygen at baseline, currently up titrated to 4 L nasal cannula, continue to monitor his oxygen requirements -if patient requires escalating use of oxygen and high-flow, then he should be reassessed for acute hypoxic respiratory failure 3. COPD. Chronic, continue his home Advair, placed on scheduled duo nebs for 24 hours then make p.r.n. and restart Spiriva, no evidence of acute exacerbation presently 4. Chronic pain with continuous opiate dependency. Continue home medications 5. Hyponatremia. Acute, serum sodium 132 in the setting of infection and likely hypovolemic, give normal saline and repeat level in a.m. Diet. Regular Prophylaxis. High risk patient, 40 Lovenox Code. Full, his ex- Stefani Luna is MDPOA Disposition. Anticipated discharge uncertain this time, anticipated length stay greater than 48 hours reasonable medical necessity including community- acquired pneumonia and high risk patient with chronic hypoxic respiratory failure, chronic COPD, chronic pain with opiate dependency and hyponatremia.
--- NOTE | 2017-10-09 19:42 | PDMN ---
Medical Necessity Medical necessity: C/M review: est. > 2 MN LOS for eval and TX of acute community acquired left lower lobe pneumonia, hyponatremia requiring ongoing IV Azithramycin, IV Ceftriaxone, IV fluids, Duonebs, pulse oximetry, comorbid high risk patient with chronic hypoxic respiratory failure on supplemental O2 2-4L/ min. at baseline, COPD, chronic pain with continuous opiate dependence per H/P.
[2017-10-09] MEDS: oxyCODONE IR 5 MG TAB PO PRN (21:00)
[2017-10-09] MEDS: SENNOSIDES/DOCUSATE SODIUM TAB PO SCH (21:00)
[2017-10-09] MEDS: DIAZEPAM 5 MG TAB PO SCH (21:00)
[2017-10-09] MEDS ORDERED: DIAZEPAM 10 MG TAB PO SCH (21:00)
[2017-10-09] MEDS: morphINE SR 60 MG TAB PO SCH (21:00)
[2017-10-09] MEDS: CALCIUM CARBONATE 500 MG TAB PO SCH (21:00)
[2017-10-09] MEDS: IPRATROPIUM/ALBUTEROL 3 ML DEYVIAL IH SCH (21:16)
[2017-10-09] MEDS: FLUTICASONE/SALMETER 250/50MCG DISKUS IH SCH (21:21)
[2017-10-09] MEDS: PATCH REMOVAL 1 EA PATCH TD SCH (22:16)
[2017-10-10] MEDS: NS 1,000 ML IV SCH (03:23)
[2017-10-10] MEDS: oxyCODONE IR 5 MG TAB PO PRN (04:56)
[2017-10-10 05:07] LABS: % IMMATURE GRANULYOCYTES 0.6 % (0.0-1.1); ABSOLUTE IMMATURE GRANULOCYTES 0.15 10^3/uL (0.00-0.10); ADD DIFF? NO; ADD MORPH? NO; ADD SCAN? NO; ATYPICAL LYMPHOCYTE FLAG 0 (0-99); FRAGMENT RBC FLAG 0 (0-99); HEMATOCRIT 37.5 % (40.0-51.0); HEMOGLOBIN 13.4 g/dL (13.7-17.5); LEFT SHIFT FLG 10 (0-99); LIPEMIA HEMOLYSIS FLAG 90 (0-99); MEAN CELL HEMOGLOBIN 32.4 pg (27.9-34.1); MEAN CELL HEMOGLOBIN CONCENTR. 35.7 g/dL (32.4-36.7); MEAN CELL VOLUME 90.8 fL (81.5-99.8); MEAN PLATELET VOLUME 10.6 fL (8.7-11.7); PLATELET CLUMPS FLAG 0 (0-99); PLATELET COUNT 250 10^3/uL (150-400); RED BLOOD CELL COUNT 4.13 10^6/uL (4.40-6.38); RED CELL DISTRIBUTION WIDTH 13.2 % (11.5-15.2)
[2017-10-10 05:19] LABS: ALANINE AMINOTRANSFERASE 25 IU/L (21-72); ALBUMIN 3.4 g/dL (3.5-5.0); ALKALINE PHOSPHATASE 54 IU/L (38-126); ANION GAP 8 mEq/L (8-16); ASPARTATE AMINOTRANSFERASE 21 IU/L (17-59); BILIRUBIN,TOTAL 0.6 mg/dL (0.1-1.4); CALCIUM 8.9 mg/dL (8.5-10.4); CARBON DIOXIDE 26 mEq/l (22-31); CHLORIDE 102 mEq/L (97-110); CREATININE 0.5 mg/dL (0.7-1.3); GLOMERULAR FILTRATION RATE > 60; GLUCOSE 158 mg/dL (70-100); MAGNESIUM 2.1 mg/dL (1.6-2.3); POTASSIUM 4.2 mEq/L (3.5-5.2); SODIUM 136 mEq/L (134-144); TOTAL PROTEIN 6.2 g/dL (6.3-8.2)
[2017-10-10] MEDS: IPRATROPIUM/ALBUTEROL 3 ML DEYVIAL IH SCH ×4 (05:58→22:35)
[2017-10-10] MEDS: DRONABINOL 2.5 MG CAP PO SCH ×3 (07:37→17:44)
[2017-10-10] MEDS: AZITHROMYCIN IV 500 MG in D5W 250 ML IV SCH (08:02)
[2017-10-10] MEDS: ENOXAPARIN 40 MG/0.4 ML SYR SC SCH (09:14)
[2017-10-10] MEDS: predniSONE 20 MG TAB PO SCH (09:15)
[2017-10-10] MEDS: CALCIUM CARBONATE 500 MG TAB PO SCH ×3 (09:15→21:15)
[2017-10-10] MEDS: SENNOSIDES/DOCUSATE SODIUM TAB PO SCH ×2 (09:15→21:15)
[2017-10-10] MEDS: MULTIVITAMINS 1 EACH TAB PO SCH (09:15)
[2017-10-10] MEDS: DILTIAZEM CD 180 MG CAP PO SCH (09:15)
[2017-10-10] MEDS: morphINE SR 60 MG TAB PO SCH ×2 (09:15→21:15)
[2017-10-10] MEDS: CHOLECALCIFEROL VIT D3 1,000 UNITS TAB PO SCH (09:15)
[2017-10-10] MEDS: FLUTICASONE/SALMETER 250/50MCG DISKUS IH SCH ×2 (09:18→22:37)
--- NOTE | 2017-10-10 12:44 | HOSPPROG ---
Hospitalist Progress Note Assessment/Plan: 57-year-old male presenting with acute left lower lobe pneumonia in the setting of chronic hypoxic respiratory failure. First encounter, chart reviewed. Plan: 1. Community-acquired pneumonia. left lower lobe infiltrate on chest x-ray, extensive mucous plugging in the left lower lobe, ceftriaxone and azithromycin, continue sputum cultures, blood cultures, respiratory viral panel all negative given patient's underlying concomitant respiratory failure and COPD, will also treat with 40 mg of oral prednisone, x5 days 2. Chronic hypoxic respiratory failure. Patient uses between 2-4 L of supplemental oxygen at baseline, currently up titrated to 4 L nasal cannula, continue to monitor his oxygen requirements 3. COPD. C chronic, continue his home Advair, placed on scheduled duo nebs for 24 hours then make p.r.n. and restart Spiriva, no evidence of acute exacerbation presently 4. Chronic pain with continuous opiate dependency. Continue home medications 5. Hyponatremia. resolved Acute, serum sodium 132 in the setting of infection and likely hypovolemic, give normal saline and repeat level in a.m. 6. Leukocytosis elevated more today likely from decadon received in the ED Diet. Regular Prophylaxis. High risk patient, 40 Lovenox Code. Full, his ex- Stefani Luna is MDPOA Disposition. Anticipated discharge uncertain this time, anticipated length stay greater than 48 hours reasonable medical necessity including community- acquired pneumonia and high risk patient with chronic hypoxic respiratory failure, chronic COPD, chronic pain with opiate dependency and hyponatremia. Subjective: Feeling better today. Still SOB and cough. No pain. Objective: Vital Signs Temp Pulse Resp BP Pulse Ox 36.8 C 113 H 20 130/72 H 91 L 10/10/17 11:17 10/10/17 11:17 10/10/17 11:17 10/10/17 11:17 10/10/17 11:17 Microbiology 10/10/17 03:25 - Final Sputum, Expectorated Laboratory Results 10/10/17 04:40 10/10/17 04:40 10/09/17 10/10/17 10/11/17 05:59 05:59 05:59 Intake Total 3000 Output Total 2700 950 Balance 300 -950 PT 12.7 SEC (12.0-15.0) 10/09/17 14:39 INR 0.96 (0.83-1.16) 10/09/17 14:39 - Physical Exam Constitutional: appears nourished, not in pain, chronically ill appearing Eyes: PERRL, anicteric sclera, EOMI Ears, Nose, Mouth, Throat: moist mucous membranes, hearing normal, ears appear normal Cardiovascular: tachycardia, No JVD, No edema Respiratory: no respiratory distress, no rales or rhonchi, reduced air movement Gastrointestinal: No tenderness, No ascites, No guarding Skin: warm, normal color, No erythema Musculoskeletal: normal joint ROM, no joint effusions, generalized weakness Neurologic: AAOx3 Psychiatric: interacting appropriately, not encephalopathic, thought process linear ICD10 Worksheet Patient Problems: Problems Problem Status Onset Chronic obstructive pulmonary disease with acute exacerbation Acute Back pain Acute Pneumonia Acute Hypoxemia Acute
[2017-10-10] MEDS: DIAZEPAM 5 MG TAB PO SCH (21:15)
[2017-10-10] MEDS: PATCH REMOVAL 1 EA PATCH TD SCH (22:20)
[2017-10-11 04:41] LABS: % IMMATURE GRANULYOCYTES 0.7 % (0.0-1.1); ABSOLUTE IMMATURE GRANULOCYTES 0.17 10^3/uL (0.00-0.10); ADD DIFF? NO; ADD MORPH? NO; ADD SCAN? NO; ATYPICAL LYMPHOCYTE FLAG 0 (0-99); FRAGMENT RBC FLAG 0 (0-99); HEMOGLOBIN 12.8 g/dL (13.7-17.5); LEFT SHIFT FLG 0 (0-99); LIPEMIA HEMOLYSIS FLAG 90 (0-99); MEAN CELL HEMOGLOBIN 31.9 pg (27.9-34.1); MEAN CELL HEMOGLOBIN CONCENTR. 34.6 g/dL (32.4-36.7); MEAN CELL VOLUME 92.3 fL (81.5-99.8); MEAN PLATELET VOLUME 10.6 fL (8.7-11.7); PLATELET CLUMPS FLAG 0 (0-99); PLATELET COUNT 245 10^3/uL (150-400); RED BLOOD CELL COUNT 4.01 10^6/uL (4.40-6.38); RED CELL DISTRIBUTION WIDTH 13.5 % (11.5-15.2)
[2017-10-11] MEDS: IPRATROPIUM/ALBUTEROL 3 ML DEYVIAL IH SCH ×4 (05:35→21:35)
[2017-10-11] MEDS: DRONABINOL 2.5 MG CAP PO SCH ×3 (08:03→17:50)
[2017-10-11] MEDS: AZITHROMYCIN IV 500 MG in D5W 250 ML IV SCH (08:03)
[2017-10-11] MEDS: FLUTICASONE/SALMETER 250/50MCG DISKUS IH SCH ×2 (09:24→21:35)
[2017-10-11] MEDS: SENNOSIDES/DOCUSATE SODIUM TAB PO SCH ×2 (09:35→19:58)
[2017-10-11] MEDS: DILTIAZEM CD 180 MG CAP PO SCH (09:35)
[2017-10-11] MEDS: predniSONE 20 MG TAB PO SCH (09:36)
[2017-10-11] MEDS: morphINE SR 60 MG TAB PO SCH ×2 (09:36→19:59)
[2017-10-11] MEDS: CHOLECALCIFEROL VIT D3 1,000 UNITS TAB PO SCH (09:36)
[2017-10-11] MEDS: MULTIVITAMINS 1 EACH TAB PO SCH (09:36)
[2017-10-11] MEDS: CALCIUM CARBONATE 500 MG TAB PO SCH ×3 (09:36→19:59)
[2017-10-11] MEDS: ENOXAPARIN 40 MG/0.4 ML SYR SC SCH (09:43)
--- NOTE | 2017-10-11 10:15 | HOSPPROG ---
Hospitalist Progress Note Assessment/Plan: 57-year-old male presenting with acute left lower lobe pneumonia in the setting of chronic hypoxic respiratory failure. First encounter, chart reviewed. * community-acquired pneumonia, POA -on ceftriaxone and azithromycin -sputum cultures blood cultures and respiratory viral panel are negative -has extensive mucous plugging in the left lower lobe -will check a procalcitonin -patient looks ill today * chronic hypoxemic respiratory failure -due to COPD and pneumonia -at baseline is on 2-4 L of oxygen -started on prednisone * chronic COPD -on Spiriva * chronic pain on continuous opiates -home meds resumed * significant leukocytosis -suspect this is from steroid induced -is afebrile *alcohol use -patient denies regular use, says he has a few drinks once in awhile -tremulous this morning, prn Librium ordered *Nicotine dependence -nicotine gum, skin reaction to patch *underweight with a BMI of 18 *plan: will need another midnight stay. Has increase wob with talking, will check a procalcitonin and get repeat labs in a.m. Subjective: Clarence would like to go home, but is ok with staying another night. Objective: Vital Signs Temp Pulse Resp BP Pulse Ox 36.4 C 95 16 132/84 H 92 10/11/17 08:00 10/11/17 09:35 10/11/17 08:00 10/11/17 09:35 10/11/17 08:00 Microbiology 10/10/17 03:25 - Final Sputum, Expectorated Laboratory Results 10/11/17 04:23 10/10/17 04:40 10/10/17 10/11/17 10/12/17 05:59 05:59 05:59 Intake Total 3000 1000 Output Total 2700 1725 Balance 300 -725 PT 12.7 SEC (12.0-15.0) 10/09/17 14:39 INR 0.96 (0.83-1.16) 10/09/17 14:39 - Physical Exam Constitutional: chronically ill appearing, other (thin) Eyes: PERRL Ears, Nose, Mouth, Throat: hearing normal Cardiovascular: regular rate and rhythym, tachycardia Respiratory: reduced air movement (left middle lobe down) Gastrointestinal: normoactive bowel sounds Skin: warm, other (face is flushed) Musculoskeletal: generalized weakness Neurologic: AAOx3 Psychiatric: interacting appropriately, not encephalopathic, thought process linear ICD10 Worksheet Patient Problems: Problems Problem Status Onset Chronic obstructive pulmonary disease with acute exacerbation Acute Hypoxemia Acute Pneumonia Acute Back pain Acute
--- NOTE | 2017-10-11 14:01 | ASMTCMCOM ---
CM Note CM Note Notes: Patient admitted with Pneumonia/hypoxemic respiratory failure. Is on 2-4L O2 at baseline. Patient not feeling well but wants to go home. Likely d/c tomorrow; should be able to transition to all PO antibiotics. Physical Therapy has ok'ed for home; CM available for any d/c needs Date Signed: 10/11/2017 02:00 PM Electronically Signed By:Deborah García RN
[2017-10-11] MEDS: oxyCODONE IR 5 MG TAB PO PRN (15:17)
[2017-10-11] MEDS: DIAZEPAM 5 MG TAB PO SCH (19:59)
[2017-10-11] MEDS: PATCH REMOVAL 1 EA PATCH TD SCH (20:54)
[2017-10-12] MEDS: oxyCODONE IR 5 MG TAB PO PRN ×2 (04:11→10:32)
[2017-10-12 05:15] LABS: % IMMATURE GRANULYOCYTES 0.3 % (0.0-1.1); ABSOLUTE IMMATURE GRANULOCYTES 0.05 10^3/uL (0.00-0.10); ADD DIFF? NO; ADD MORPH? NO; ADD SCAN? NO; ATYPICAL LYMPHOCYTE FLAG 0 (0-99); FRAGMENT RBC FLAG 0 (0-99); HEMATOCRIT 41.8 % (40.0-51.0); HEMOGLOBIN 14.6 g/dL (13.7-17.5); LEFT SHIFT FLG 0 (0-99); LIPEMIA HEMOLYSIS FLAG 90 (0-99); MEAN CELL HEMOGLOBIN 32.4 pg (27.9-34.1); MEAN CELL HEMOGLOBIN CONCENTR. 34.9 g/dL (32.4-36.7); MEAN CELL VOLUME 92.7 fL (81.5-99.8); MEAN PLATELET VOLUME 10.7 fL (8.7-11.7); PLATELET CLUMPS FLAG 0 (0-99); PLATELET COUNT 251 10^3/uL (150-400); RED BLOOD CELL COUNT 4.51 10^6/uL (4.40-6.38); RED CELL DISTRIBUTION WIDTH 13.7 % (11.5-15.2)
[2017-10-12] MEDS: IPRATROPIUM/ALBUTEROL 3 ML DEYVIAL IH SCH ×2 (05:38→10:38)
[2017-10-12] MEDS: predniSONE 20 MG TAB PO SCH (08:02)
[2017-10-12] MEDS: CALCIUM CARBONATE 500 MG TAB PO SCH (08:02)
[2017-10-12] MEDS: DRONABINOL 2.5 MG CAP PO SCH ×2 (08:02→11:34)
[2017-10-12] MEDS: CHOLECALCIFEROL VIT D3 1,000 UNITS TAB PO SCH (08:02)
[2017-10-12] MEDS: DILTIAZEM CD 180 MG CAP PO SCH (08:03)
[2017-10-12] MEDS: SENNOSIDES/DOCUSATE SODIUM TAB PO SCH (08:03)
[2017-10-12] MEDS: ENOXAPARIN 40 MG/0.4 ML SYR SC SCH (08:04)
[2017-10-12] MEDS: morphINE SR 60 MG TAB PO SCH (08:04)
[2017-10-12] MEDS: MULTIVITAMINS 1 EACH TAB PO SCH (08:04)
[2017-10-12] MEDS: FLUTICASONE/SALMETER 250/50MCG DISKUS IH SCH (08:04)
[2017-10-12 08:14] VITALS: BP 146/91
[2017-10-12 08:22] VITALS: RESP 18; TEMP 97.6
[2017-10-12] MEDS ORDERED: AZITHROMYCIN 250 MG TAB PO SCH (09:00)
[2017-10-12 10:49] VITALS: PULSE 98; O2SAT 92
--- NOTE | 2017-10-12 11:17 | HOSPPROG ---
Hospitalist Progress Note Assessment/Plan: 57-year-old male presenting with acute left lower lobe pneumonia in the setting of chronic hypoxic respiratory failure. * community-acquired pneumonia, POA, strept pneumonia -on ceftriaxone and azithromycin -sputum cultures blood cultures and respiratory viral panel are negative -has extensive mucous plugging in the left lower lobe -procalcitonin is 1.59 -patient feeling much better today and is anxious to be dc * chronic hypoxemic respiratory failure -due to COPD and pneumonia -at baseline is on 2-4 L of oxygen -started on prednisone * chronic COPD -on Spiriva * chronic pain on continuous opiates -home meds resumed * significant leukocytosis -suspect this is from steroid induced -better today *alcohol use -patient denies regular use, says he has a few drinks once in awhile -tremulous this morning, prn Librium ordered *Nicotine dependence -nicotine gum, skin reaction to patch *underweight with a BMI of 18 *plan: dc home, with f/u with his PCP Subjective: Gerry is feeling much better today/ wants to be dc sherrell. Objective: Vital Signs Temp Pulse Resp BP Pulse Ox 36.4 C 98 18 146/91 H 92 10/12/17 08:16 10/12/17 10:35 10/12/17 10:35 10/12/17 08:16 10/12/17 10:35 Microbiology 10/10/17 03:25 - Final Sputum, Expectorated Laboratory Results 10/12/17 04:54 10/10/17 04:40 10/11/17 10/12/17 10/13/17 05:59 05:59 05:59 Intake Total 1000 2050 Output Total 1725 1600 Balance -725 450 PT 12.7 SEC (12.0-15.0) 10/09/17 14:39 INR 0.96 (0.83-1.16) 10/09/17 14:39 - Physical Exam Constitutional: not in pain, chronically ill appearing, cachectic Eyes: PERRL Ears, Nose, Mouth, Throat: hearing normal Cardiovascular: regular rate and rhythym Respiratory: no respiratory distress, reduced air movement (left base, also with crackles) Skin: warm, No normal color (flushed) Musculoskeletal: full muscle strength Neurologic: AAOx3 Psychiatric: interacting appropriately, not anxious, not encephalopathic ICD10 Worksheet Patient Problems: Problems Problem Status Onset Chronic obstructive pulmonary disease with acute exacerbation Acute Hypoxemia Acute Pneumonia Acute Back pain Acute
--- NOTE | 2017-10-12 12:40 | ASDISCHSUM ---
Discharge Information Plan Status:Home with No Needs Medically Cleared to Leave: Discharge Date:10/12/2017 12:08 PM CM D/C Disposition:Home, Routine, Self-Care ADT D/C Disposition:Home, Routine, Self-Care Projected Discharge Date:10/12/2017 12:08 PM Transportation at D/C: Discharge Delay Reason: Follow-Up Date:10/12/2017 12:08 PM Discharge Slot: Final Diagnosis: Placement Information Patient Contact Information Contact Name:GARETH Relationship: Address:[address] City:[place] Alternate Phone: [facility]/Zip Code:[place] [address] Email: Financial Information Financial Class: Primary Plan Desc:[employer] [place] [place] Primary Plan Number:[id number] Secondary Plan Desc: Secondary Plan Number: Assessment Information [facility] CM Progress Note CM Note CM Note Notes: Patient admitted with Pneumonia/hypoxemic respiratory failure. Is on 2-4L O2 at baseline. Patient not feeling well but wants to go home. Likely d/c tomorrow; should be able to transition to all PO antibiotics. Physical Therapy has ok'ed for home; CM available for any d/c needs Date Signed: 10/11/2017 02:00 PM Electronically Signed By:Deborah García RN [facility] CM Progress Note CM Note CM Note Notes: Pt medically stable for d/c, no CM d/c needs identified. Date Signed: 10/12/2017 12:39 PM Electronically Signed By:OUMAR Miller Intervention Information
--- NOTE | 2017-10-12 23:47 | GDS ---
[f rep st] DISCHARGE SUMMARY DISCHARGE DIAGNOSES: 1. Community-acquired pneumonia, strep pneumonia. 2. Chronic hypoxemic respiratory failure. 3. Chronic obstructive pulmonary disease. 4. Chronic pain on continuous chronic opiates. 5. Significant leukocytosis. 6. Alcohol use. 7. Nicotine dependence. 8. Underweight with a body mass index of 18. REASON FOR ADMISSION: Briefly, the patient is a 57-year-old male with underlying lung disease who presented to the emergency room with chills and productive cough for several days. He also had some shortness of breath that was worse with activity. He is usually on 2 L of oxygen, but was requiring more. On admission, he had a chest x-ray performed that showed a left lower lobe pneumonia. Subsequently, he had a CTA performed which showed no visible pulmonary embolus. He has extensive mucous plugging in the left lower lobe with consolidation that could be related to atelectasis and/or pneumonia. He has multiple new inducing pulmonary nodules of which could be inflammatory related to metastasis. Recommendation is for followup chest CT in 3 months. HOSPITAL COURSE: By problem. 1. Community-acquired pneumonia Strep pneumoniae. He was treated with ceftriaxone and azithromycin. His blood cultures and respiratory viral panel were negative. Procalcitonin level is 1.59. He is feeling markedly better today. He will be discharged on several more days of antibiotics. 2. Chronic hypoxemic respiratory failure. He is at his baseline which is 2-4 L. Continued on prednisone for approximately another week. 3. COPD. This is chronic. Resume Spiriva. 4. Chronic pain on chronic continuous opioids. Home medications have been resumed. 5. Significant leukocytosis. This is better today. Also, steroids have affected this. 6. Alcohol use. He denies regulate use, but he has been somewhat tremulous during his stay and responded well to Librium. Encouraged him to try to avoid alcohol. 7. Nicotine dependence. He does well with nicotine gum. 8. Underweight. He has a BMI of 18. DISCHARGE CONDITION: Stable. Blood pressure is 146/91, O2 sats on 2 L are 92% , respiratory rate is 18, pulse is 98, temperature is 36.4 Celsius. MEDICATIONS AT DISCHARGE: Please see the EMR. DISCHARGE INSTRUCTIONS: 1. To follow up with his primary care provider. 2. To get a CT scan of his chest in 3-6 months to follow up with the small pulmonary nodules. I reviewed this with him. 3. If he develops fever, chills, and does not improve with antibiotics, to return to the ER. 4. Repeat chest x-ray in 6 weeks. 5. To get a repeat CBC later this week. Greater than 30 minutes discharging and coordinating his care. /[id number]/MODL MTDD
== END 2017-10-12 12:08 | disposition home or self-care (01) | DRG 194 ==
LOC: OBSVTOIN 16:46 → F3N 17:02
PROVIDERS: ADMIT Internal Medicine; ATTEND Internal Medicine
DX: J13 Pneumonia due to Streptococcus pneumoniae (principal); J96.11 Chronic respiratory failure with hypoxia; J44.1 Chronic obstructive pulmonary disease with (acute) exacerbation; Z68.1 Body mass index [BMI] 19.9 or less, adult; G89.29 Other chronic pain; R63.6 Underweight; I10 Essential (primary) hypertension; F17.200 Nicotine dependence, unspecified, uncomplicated; Z72.89 Other problems related to lifestyle
CPT/HCPCS: 97161-GP; J0456; J0696; J1100; J1650; Q9967

== ENCOUNTER 2018-01-29 14:38 | Emergency (ER) | payer MEDICAID ==
[2018-01-29] MEDS ORDERED: IPRATROPIUM/ALBUTEROL 3 ML DEYVIAL ONE (15:50)
[2018-01-29] MEDS ORDERED: IPRATROPIUM/ALBUTEROL 3 ML DEYVIAL IH ONE (15:51)
--- NOTE | 2018-01-29 16:38 | EDPHY ---
H & P Smoking Status: Current every day smoker Time Seen by Provider: 01/29/18 15:52 HPI/ROS: CHIEF COMPLAINT: Left rib pain, shortness of breath HISTORY OF PRESENT ILLNESS: 57-year-old male presents to the emergency department by a private vehicle feeling short of breath. He states 1 week ago he was leaning on his left side over the edge of a counter and felt pain in his left rib. He is concerned that he may have broken a rib. He did not come to the emergency department until his made him come in today because he seemed more short of breath. He states that it is very painful to take a big deep breath with the pain on his left rib. He denies abdominal pain. He has a known history of COPD and is on continuous oxygen, 2.5 L. Patient denies nausea or vomiting. He has no URI symptoms. He has had pneumonia in the past he does not feel that this is similar. He feels that he is likely short of breath because he is not taking big deep breath because of the pain in his left rib. REVIEW OF SYSTEMS: Constitutional: No fever, no chills. Eyes: No double or blurry vision. ENT: No sore throat. Respiratory: Rib pain as above. Shortness of breath. No cough. Cardiac: No chest pain. Gastrointestinal: No abdominal pain, vomiting or diarrhea. Genitourinary: No dysuria. Musculoskeletal: No neck or back pain. Skin: No rashes. Neurological: No headache. (Lizet Velasquez) Past Medical/Surgical History: COPD on continuous oxygen, pneumonia 1 year ago, chronic neck and back pain, orthopedic surgery, osteoporosis (Lizet Velasquez) Social History: (Lizet Velasquez) Physical Exam: General Appearance: Alert, no distress. 135/96, 87% on room air. Eyes: Pupils equal and round. Extraocular motions are all intact. ENT: Mouth: Mucous membranes moist. Respiratory: Diffuse expiratory wheezing throughout. Decreased breath sounds especially in the bases. Patient has reproducible pain with palpation to the left lateral aspect of his chest wall in the midaxillary line around rib 8 through 10. No palpable crepitus or other bony abnormality. Cardiovascular: Regular rate and rhythm. Gastrointestinal: Abdomen is soft and nontender, no masses, no rebound or guarding, bowel sounds normal. Specifically no pain with palpation in the left upper quadrant. Neurological: Alert and oriented x 3, cranial nerves II through XII grossly intact Skin: Warm and dry, no rashes. Musculoskeletal: Nontender to palpate along the cervical, thoracic or lumbar spine. Neck is supple. Extremities: Full range of motion and no peripheral edema. Psychiatric: Patient is oriented X 3, there is no agitation. (Lizet Velasquez) Constitutional: Initial Vital Signs Temperature (C) 36.8 C 01/29/18 14:47 Heart Rate 104 H 01/29/18 14:47 Respiratory Rate 20 01/29/18 14:47 Blood Pressure 135/96 H 01/29/18 14:47 O2 Sat (%) 87 L 01/29/18 14:47 O2 Delivery Mode Nasal Cannula O2 (L/minute) 3 Allergies/Adverse Reactions: HAYFEVER Allergy (Mild, Uncoded 01/29/18 14:45) NASAL CONGESTION Home Medications: Medication Instructions Recorded Albuterol [Proventil Inhaler HFA 2 puffs IH Q4 PRN 01/19/16 (*)] DILTIAZEM HCL [DILTIAZEM 24HR ER] 180 mg PO DAILY 01/19/16 Diazepam [Valium 10 MG (*)] 10 mg PO HS 01/19/16 Fluticasone/Salmeter 250/50Mcg 1 puffs IH BID 01/19/16 [Advair 250/50 (*)] Tizanidine HCl [Zanaflex] 4 mg PO TID PRN 01/19/16 Polyethylene Glycol 3350 [Miralax 17 gm PO DAILY PRN #0 pkt 03/17/16 17 gm (*)] Calcium Carbonate [Oyster Shell 500 mg PO TID 02/08/17 Calcium 500 mg (*)] Cholecalciferol Vit D3 [Vitamin D3 1,000 units PO DAILY 02/08/17 (*)] Lidocaine [Lidoderm] 1 - 2 each TP DAILY PRN 02/08/17 morphINE SR [MS Contin/Oramorph 60 1 tab PO Q12 02/08/17 mg (*)] Dronabinol [Marinol 2.5 MG (*)] 2.5 mg PO TIDMEAL 10/09/17 Ibuprofen [Motrin (*)] 800 mg PO BID PRN 10/09/17 Multivitamins [Multivitamin (*)] 1 each PO DAILY 10/09/17 Sennosides/Docusate Sodium 1 - 2 tab PO BID PRN 10/09/17 [Senokot-S] Tiotropium Inhaler [Spiriva 1 inh IH BID 10/09/17 Inhaler (RX)] oxyCODONE IR [Oxycodone Ir (*)] 20 mg PO Q6HRS PRN 10/09/17 Medical Decision Making - Diagnostics Imaging: I viewed and interpreted images myself ED Course/Re-evaluation: 57-year-old male with a known history of COPD presents with rib pain and feeling short of breath. Chest x-ray reveals no evidence of pneumothorax or obvious rib fracture. The patient is on continuous oxygen. He is not requiring more oxygen. He has is only spirometer at home. He will be discharged home with his and will return if he feels short of breath or any other change in symptoms. (Lizet Velasquez) Differential Diagnosis: Shortness of breath including but not limited to rib fracture, pulmonary infectious process, COPD, asthma, pulmonary embolus and congestive heart failure. (Lizet Velasquez) Other Provider: The patient was evaluated and managed by the Physician Sales Operations Manager. My co- signature indicates that I have reviewed this chart and I agree with the findings and plan of care as documented. I am the secondary supervising physician. (Griselda Vera) - Data Points Medications Given: Discontinued Medications Albuterol/Ipratropium (Duoneb) 3 ml IH EDNOW ONE Stop: 01/29/18 15:52 Last Admin: 01/29/18 15:51 Dose: 3 ml Departure - Departure Disposition: Home, Routine, Self-Care Clinical Impression: Chest wall contusion Condition: Good Instructions: Chest Pain (ED), Rib Fracture (ED) Additional Instructions: You should take deep breaths. Return to the emergency department if you feel short of breath, if he developed pain in your chest, or if you feel worse in any way. Continue your medications and oxygen as directed. Referrals: CHARBEL LEUNG [Other] - 1-2 days without fail
[2018-01-29 17:10] VITALS: BP 127/78; PULSE 81; RESP 22; TEMP 98.2; O2SAT 93
== END 2018-01-29 17:11 | disposition home or self-care (01) ==
DX: S20.20XA Contusion of thorax, unspecified, initial encounter (principal); J44.9 Chronic obstructive pulmonary disease, unspecified; F17.200 Nicotine dependence, unspecified, uncomplicated; X58.XXXA Exposure to other specified factors, initial encounter

== ENCOUNTER 2018-02-01 07:52 | Inpatient (IN) | payer MEDICAID ==
[2018-02-01] MEDS ORDERED: MAGNESIUM SULF 2 GM/WATER 50 ML IV ONE (07:59)
[2018-02-01] MEDS ORDERED: IPRATROPIUM/ALBUTEROL 3 ML DEYVIAL IH ONE (07:59)
--- NOTE | 2018-02-01 08:04 | EDPHY ---
H & P Time Seen by Provider: 02/01/18 07:59 HPI/ROS: CHIEF COMPLAINT: Shortness of breath HISTORY OF PRESENT ILLNESS: Patient is a 57-year-old man with history of COPD and emphysema who comes to the emergency department emergently on BiPAP. His states that he has needed increased albuterol treatments over the last couple of days and had increasing shortness of breath and possibly a low-grade fever. Today he had severe shortness of breath. He used his inhaler without improvement. He wears 4 L of oxygen at home at baseline. When paramedics arrived his sats were in the 70s and they placed him on BiPAP. He improved with this. They gave him a DuoNeb and 125 IV Solu-Medrol. Between the ambulance [place] and the ER room he desaturated again to 80% on facemask oxygen. He denies chest pain or any cardiac history. REVIEW OF SYSTEMS: Constitutional: denies: chills, fever, recent illness, recent injury EENTM: denies: blurred vision, double vision, nose congestion Respiratory: See HPI Cardiac: denies: chest pain, irregular heart rate, lightheadedness, palpitations Gastrointestinal/Abdominal: denies: abdominal pain, diarrhea, nausea, vomiting, blood streaked stools Genitourinary: denies: dysuria, frequency, hematuria, pain Musculoskeletal: denies: joint pain, muscle pain Skin: denies: lesions, rash, jaundice, bruising Neurological: denies: headache, numbness, paresthesia, tingling, dizziness, weakness Hematologic/Lymphatic: denies: blood clots, easy bleeding, easy bruising Immunologic/allergic: denies: HIV/AIDS, transplant EXAM: GENERAL: Significant distress HEAD: Atraumatic, normocephalic. EYES: Pupils equal round and reactive to light, extraocular movements intact, sclera anicteric, conjunctiva are normal. ENT: TMs normal, nares patent, oropharynx clear without exudates. Moist mucous membranes. NECK: Normal range of motion, supple without lymphadenopathy or JVD. LUNGS: Distant breath sounds, tachypneic HEART: Regular rate and rhythm without murmurs, rubs or gallops. ABDOMEN: Soft, nontender, normoactive bowel sounds. No guarding, no rebound. No masses appreciated. BACK: No CVA tenderness, no spinal tenderness, step-offs or deformities EXTREMITIES: Normal range of motion, no pitting or edema. No clubbing or cyanosis. NEUROLOGICAL: Cranial nerves II through XII grossly intact. Normal speech, normal gait. 5/5 strength, normal movement in all extremities, normal sensation PSYCH: Normal mood, normal affect. SKIN: Warm, dry, normal turgor, no visible rashes or lesions. Source: Patient, Family, EMS Exam Limitations: Clinical condition - Personal History Tetanus Vaccine Date: < 10 years - Medical/Surgical History Hx Asthma: No Hx Chronic Respiratory Disease: Yes Hx Diabetes: No Hx Cardiac Disease: No Hx Renal Disease: No Hx Cirrhosis: No Hx Alcoholism: No Hx HIV/AIDS: No Hx Splenectomy or Spleen Trauma: No Other PMH: PMH: COPD, emphysema, HTN, Dupuyten's contracture, chronic back and neck pain, surgery both feet, PNA, osteoporosis - Family History Significant Family History: COPD - Social History Smoking Status: Current every day smoker Alcohol Use: Sober Drug Use: None Constitutional: Initial Vital Signs Temperature (C) 38.2 C 02/01/18 07:53 Heart Rate 96 02/01/18 07:53 Respiratory Rate 40 H 02/01/18 07:53 Blood Pressure 167/104 H 02/01/18 07:53 O2 Sat (%) 84 L 02/01/18 07:53 O2 Delivery Mode Nasal Cannula O2 (L/minute) 3 Allergies/Adverse Reactions: HAYFEVER Allergy (Mild, Uncoded 01/29/18 14:45) NASAL CONGESTION Home Medications: Medication Instructions Recorded Albuterol [Proventil Inhaler HFA 2 puffs IH Q4 PRN 01/19/16 (*)] DILTIAZEM HCL [DILTIAZEM 24HR ER] 180 mg PO DAILY 01/19/16 Diazepam [Valium 10 MG (*)] 10 mg PO HS 01/19/16 Tizanidine HCl [Zanaflex] 4 mg PO TID PRN 01/19/16 Polyethylene Glycol 3350 [Miralax 17 gm PO DAILY PRN #0 pkt 03/17/16 17 gm (*)] Calcium Carbonate [Oyster Shell 500 mg PO TID 02/08/17 Calcium 500 mg (*)] Cholecalciferol Vit D3 [Vitamin D3 1,000 units PO DAILY 02/08/17 (*)] Lidocaine [Lidoderm] 1 - 2 each TP DAILY PRN 02/08/17 morphINE SR [MS Contin/Oramorph 60 1 tab PO BID 02/08/17 mg (*)] Dronabinol [Marinol 2.5 MG (*)] 2.5 mg PO TIDMEAL 10/09/17 Ibuprofen [Motrin (*)] 800 mg PO BID PRN 10/09/17 Multivitamins [Multivitamin (*)] 1 each PO DAILY 10/09/17 Sennosides/Docusate Sodium 1 - 2 tab PO BID PRN 10/09/17 [Senokot-S] oxyCODONE IR [Oxycodone Ir (*)] 20 mg PO Q6HRS PRN 10/09/17 Fluticasone/Salmeter 500/50Mcg 1 puffs IH BID 02/01/18 [Advair 500/50 (*)] Ipratropium/Albuterol [Duoneb (*)] 3 ml IH QID PRN 02/01/18 Tamsulosin HCl [Flomax 0.4 MG (*)] 0.4 mg PO DAILY 02/01/18 Medical Decision Making - Diagnostics EKG Interpretation: An EKG obtained and was read and documented in trace view. Please see trace view for full reading and report. Sinus tachycardia, no acute ischemic changes Imaging: I viewed and interpreted images myself (Consistent with bronchitis and emphysema) ED Course/Re-evaluation: 8:20 a.m. the patient is doing much better. We are able to turn down the BiPAP machine. His lab work thus far is unremarkable and no sign of sepsis. I suspect he has a viral bronchitis. His currently suffering from a viral illness as well. I will not began antibiotics at this point and will wait for the respiratory panel to return. I have paged the hospitalist service for admission. 8:30 a.m. I spoke with Lizzy who accepted for Dr. Moore. She agrees with not treating with antibiotics at this point. 9:40 a.m. I got an over read on the patient's x-ray with possible pneumonia. I called and spoke with Lizzy about the over read. Differential Diagnosis: Partial list of the Differential diagnosis considered include but were not limited to; COPD exacerbation, bronchitis, pneumonia and although unlikely based on the history and physical exam, I also considered acute coronary disease , arrhythmia, dissection, PE. Critical Care Time: Critical care time spent by me, Dr. Beyer exclusive with this patient was 45 minutes, exclusive of the PA time exclusive of procedures. The organ system that was at risk was pulmonary and I gave BiPAP, IV medications, workup, consultation and admission to prevent worsening of the patient's condition - Data Points Laboratory Results: Laboratory Results 02/02/18 05:10 02/02/18 05:10 02/02/18 02/02/18 05:10 05:10 WBC 8.80 10^3/uL 10^3/uL (3.80-9.50) RBC 4.52 10^6/uL 10^6/uL (4.40-6.38) Hgb 14.6 g/dL g/dL (13.7-17.5) Hct 41.6 % % (40.0-51.0) MCV 92.0 fL fL (81.5-99.8) MCH 32.3 pg pg (27.9-34.1) MCHC 35.1 g/dL g/dL (32.4-36.7) RDW 13.1 % % (11.5-15.2) Plt Count 216 10^3/uL 10^3/uL (150-400) MPV 11.0 fL fL (8.7-11.7) Neut % (Auto) 86.2 % H % (39.3-74.2) Lymph % (Auto) 6.0 % L % (15.0-45.0) [place] % (Auto) 7.4 % % (4.5-13.0) Eos % (Auto) 0.0 % L % (0.6-7.6) Baso % (Auto) 0.1 % L % (0.3-1.7) Nucleat RBC Rel Count 0.0 % % (0.0-0.2) Absolute Neuts (auto) 7.58 10^3/uL H 10^3/uL (1.70-6.50) Absolute Lymphs (auto) 0.53 10^3/uL L 10^3/uL (1.00-3.00) Absolute Monos (auto) 0.65 10^3/uL 10^3/uL (0.30-0.80) Absolute Eos (auto) 0.00 10^3/uL L 10^3/uL (0.03-0.40) Absolute Basos (auto) 0.01 10^3/uL L 10^3/uL (0.02-0.10) Absolute Nucleated RBC 0.00 10^3/uL 10^3/uL (0-0.01) Immature Gran % 0.3 % % (0.0-1.1) Immature Gran # 0.03 10^3/uL 10^3/uL (0.00-0.10) Sodium 137 mEq/L mEq/L (135-145) Potassium 4.5 mEq/L mEq/L (3.5-5.2) Chloride 99 mEq/L mEq/L (97-110) Carbon Dioxide 29 mEq/l mEq/l (22-31) Anion Gap 9 mEq/L mEq/L (8-16) BUN 9 mg/dL mg/dL (7-23) Creatinine 0.4 mg/dL L mg/dL (0.7-1.3) Estimated GFR > 60 Glucose 120 mg/dL H mg/dL (70-100) Calcium 9.0 mg/dL mg/dL (8.5-10.4) Microbiology Results: MICROBIOLOGY 02/01/18 08:50 Blood Blood Culture - Preliminary 02/01/18 08:05 Blood Blood Culture - Preliminary 02/01/18 08:15 Nasal, Sinus - Anaerobic Tube/Swab Respiratory Panel (PCR) - Final Human Metapneumovirus Medications Given: Acetaminophen (Tylenol) 650 mg PO Q4HRS PRN PRN Reason: Pain, Mild/Fever, Can Take PO Stop: 07/31/18 10:00 Last Admin: 02/01/18 12:01 Dose: 650 mg Albuterol/Ipratropium (Duoneb) 3 ml IH QID [facility] Stop: 07/31/18 11:59 Last Admin: 02/02/18 11:50 Dose: 3 ml Azithromycin (Zithromax) 250 mg PO DAILY [facility] PRN Reason: Protocol Stop: 03/04/18 08:59 Last Admin: 02/02/18 09:51 Dose: 250 mg Diazepam (Valium) 10 mg PO HS [facility] Stop: 07/31/18 20:59 Last Admin: 02/01/18 22:40 Dose: 10 mg Diltiazem HCl (Cardizem Er Q24hr) 180 mg PO DAILY [facility] Stop: 08/01/18 08:59 Last Admin: 02/02/18 09:50 Dose: 180 mg Dronabinol (Marinol) 2.5 mg PO TIDMEAL [facility] Stop: 02/11/18 11:59 Last Admin: 02/02/18 12:06 Dose: 2.5 mg Enoxaparin Sodium (Lovenox) 40 mg SC DAILY [facility] Stop: 08/01/18 08:59 Last Admin: 02/02/18 09:53 Dose: Not Given Methylprednisolone Sodium Succinate (Solu-Medrol) 40 mg IVP Q6HRS [facility] Stop: 08/01/18 13:44 Last Admin: 02/02/18 14:22 Dose: 40 mg Miscellaneous Medication (Icy Hot Lidocaine/Menthol 4%/1% Patch) 1 - 2 patch TD DAILY PRN PRN Reason: Pain, Inflammatory Stop: 07/31/18 10:21 Last Admin: 02/02/18 12:14 Dose: 2 patch Morphine Sulfate (Ms Contin/Oramorph) 60 mg PO BID@0600,1800 [facility] Stop: 02/11/18 18:29 Last Admin: 02/02/18 05:48 Dose: 60 mg Nicotine (Nicoderm Cq) 21 mg TD DAILY [facility] Stop: 07/31/18 12:29 Last Admin: 02/02/18 09:49 Dose: 21 mg Oxycodone HCl (Oxycodone Ir) 20 mg PO Q6HRS PRN PRN Reason: Pain, Breakthrough Stop: 02/11/18 10:02 Last Admin: 02/02/18 12:05 Dose: 20 mg Fluticasone/Salmeterol (Advair) 1 puffs IH BID [facility] Stop: 07/31/18 20:59 Last Admin: 02/02/18 11:50 Dose: 1 puffs Tizanidine HCl (Zanaflex) 4 mg PO TID PRN PRN Reason: MUSCLE SPASMS Stop: 07/31/18 10:22 Last Admin: 02/02/18 14:22 Dose: 4 mg Discontinued Medications Acetaminophen (Tylenol) 1,000 mg PO EDNOW ONE Stop: 02/01/18 08:27 Last Admin: 02/01/18 09:15 Dose: 1,000 mg Albuterol/Ipratropium (Duoneb) 3 ml IH EDNOW ONE Stop: 02/01/18 08:00 Last Admin: 02/01/18 08:06 Dose: 3 ml Azithromycin (Zithromax) 500 mg PO ONCE ONE PRN Reason: Protocol Stop: 02/01/18 10:06 Last Admin: 02/01/18 10:51 Dose: 500 mg Magnesium Sulfate (Magnesium Sulf 2 Gm (Premix)) 50 mls @ 50 mls/hr IV EDNOW ONE Stop: 02/01/18 08:58 Last Admin: 02/01/18 08:06 Dose: 50 mls Morphine Sulfate (Ms Contin/Oramorph) 60 mg PO Q12 [facility] Stop: 02/11/18 20:59 Last Admin: 02/01/18 18:04 Dose: 60 mg Prednisone (Prednisone) 40 mg PO DAILY [facility] Stop: 08/01/18 08:59 Last Admin: 02/02/18 09:00 Dose: 40 mg Departure - Departure Disposition: [facility] Acute Clinical Impression: Chronic obstructive pulmonary disease with acute exacerbation Acute bronchitis Qualifiers: Bronchitis organism: unspecified organism Qualified Code(s): J20.9 - Acute bronchitis, unspecified Condition: Critical
[2018-02-01 08:07] LABS: PLATELET COUNT 242 10^3/uL (150-400)
--- NOTE | 2018-02-01 08:13 | CPEKG ---
Heart Rate: 103 RR Interval: 583 P-R Interval: 196 QRSD Interval: 94 QT Interval: 348 QTC Interval: 456 P [place]: 87 QRS [place]: 86 T Wave [place]: 80 EKG Severity - ABNORMAL ECG - EKG Impression: SINUS TACHYCARDIA Electronically Signed By: Luis Beyer 01-Feb-2018 08:14:39
[2018-02-01 08:16] LABS: INR 0.87 (0.83-1.16)
[2018-02-01] MEDS ORDERED: ACETAMINOPHEN 500 MG TAB PO ONE (08:26)
[2018-02-01] MEDS ORDERED: ALBUTEROL 3 ML DEYVIAL IH PRN (10:01)
[2018-02-01] MEDS ORDERED: PROMETHAZINE HCL 25 MG/ML INJ IVP PRN (10:01)
[2018-02-01] MEDS ORDERED: ACETAMINOPHEN 325 MG TAB PO PRN (10:01)
[2018-02-01] MEDS ORDERED: LIDOCAINE TP PRN (10:03)
[2018-02-01] MEDS ORDERED: NON-FORMULARY NEW DRUG (Tizanidine Hcl [Zanaflex] 4 MG) PO PRN (10:03)
[2018-02-01] MEDS ORDERED: AZITHROMYCIN 250 MG TAB PO ONE (10:05)
[2018-02-01] MEDS ORDERED: LIDOCAINE 4%/MENTHOL 1% PATCH TD PRN (10:22)
[2018-02-01] MEDS: DRONABINOL 2.5 MG CAP PO SCH ×2 (10:54→17:37)
[2018-02-01] MEDS: oxyCODONE IR 5 MG TAB PO PRN ×2 (12:01→18:04)
[2018-02-01] MEDS: IPRATROPIUM/ALBUTEROL 3 ML DEYVIAL IH SCH ×3 (12:25→21:21)
--- NOTE | 2018-02-01 13:06 | GHP ---
[f rep st] HISTORY AND PHYSICAL DATE OF ADMISSION: 02/01/2018 CHIEF COMPLAINT: Shortness of breath. HISTORY OF PRESENT ILLNESS: A 53-year-old man with history of oxygen-dependent COPD, who presents with worsening shortness of breath. He says that he has been sick for a few days. His is also sick with similar symptoms. He has been coughing, which has been somewhat productive of sputum, though he has had difficulty clearing his sputum due to a recent rib injury. He has possibly had some fevers at home. He received steroids and nebulizers in the emergency department, was placed on BiPAP. He is off BiPAP now and feeling significantly better. PAST MEDICAL/SURGICAL HISTORY: 1. COPD, oxygen dependent on 4 L recently. 2. Chronic pain, on continuous narcotics. 3. Hand surgery, foot surgery, Dupuytren's contracture. MEDICATIONS: Please see medication reconciliation. ALLERGIES: Hay fever. SOCIAL HISTORY: He has not had a cigarette for 2 days. However, he is continuing to smoke. He very rarely drinks alcohol. FAMILY HISTORY: His father had coronary artery disease. He had colon cancer in a sibling. REVIEW OF SYSTEMS: 10-point review of systems is conducted and is negative except per HPI. PHYSICAL EXAMINATION: VITAL SIGNS: Blood pressure 136/78, heart rate 102, respiration rate 18, satting at 97% on 5 L, temperature is 37.1. GENERAL: The patient is a pleasant man who is resting, in mild respiratory distress. HEENT: Shows him to be normocephalic, atraumatic. CARDIOVASCULAR: Regular rate and rhythm. No murmurs, rubs, or gallops. PULMONARY: Shows lungs to have diminished breath sounds throughout. He has mild expiratory wheezes. ABDOMINAL : Soft, nontender, nondistended. SKIN: Shows no rash. : No Perrin. NEUROLOGIC: Shows him to be alert and oriented x3. He is moving all extremities. PSYCHIATRIC: Shows normal mood and affect. LABORATORY DATA: White count is 6.7. INR 0.8. Lactate is 1.0. Bicarb is 29. Procalcitonin 0.23. DATA: 1. Reviewed his chart, including note from Dr. Beyer. 2. ECG, which I personally viewed and interpreted, shows sinus tachycardia. 3. Chest x-ray, which I personally reviewed and interpreted, shows full lung daigle. He has mild bibasilar infiltrates. IMPRESSION AND PLAN: 1. Chronic obstructive pulmonary disease with acute exacerbation: He received steroids in the emergency department. Feeling much better. We will start him on daily prednisone. He will also get azithromycin oral. He will get DuoNeb as well. Continue his Advair. 2. Ntvey-af-dtdjzfv hypoxic respiratory failure: He is off BiPAP currently. Overall improved. Will monitor him closely for now. 3. Human metapneumovirus: Supportive care. Likely the trigger for chronic obstructive pulmonary disease exacerbation. 4. Tobacco use: Cessation counseled. Will provide him with a nicotine patch. 5. Chronic pain on continuous narcotics: We will continue his home dose narcotics. 6. Pulmonary nodule seen on last CT scan: Will repeat a CAT scan today to follow up on this. I have discussed this with him. 7. Code status is full. 8. Venous thromboembolism risk is moderate to high. I will give him Lovenox. /[id number]/MODL MTDD
[2018-02-01] MEDS ORDERED: IOPAMIDOL (ISOVUE-300) 100 ML BTL ONE (13:26)
[2018-02-01] MEDS: NICOTINE 21 MG/24 HR PATCH TD SCH (14:09)
--- NOTE | 2018-02-01 14:24 | ASMTLACE ---
JOEL Acuity / Level of Answers: No Care: Did the patient have an inpatient admission? Comorbidities - select Answers: Chronic pulmonary disease all that apply Opioid dependence / Chronic pain Other Notes: Resp Failure # of Emergency department Answers: 1-2 visits in the last 6 months Social determinants Answers: History of substance abuse (ETOH, street drugs, prescription drugs, etc.) Score: 11 Date Signed: 02/01/2018 02:23 PM Electronically Signed By:Corina Phelps LCSW
--- NOTE | 2018-02-01 14:29 | ASMTCMCOM ---
CM Note CM Note Notes: 57yr old male admitted for SOB, Pneumo-virus, COPD exacerbation, HTN, Hypoxemia. Patient has a Hx of Chronic neck and back pain. Lives with his . Has Medicaid and receives [employer] [place]. Patient interested in [facility] [phone] left them a message and said that patient would call them once out of the hospital. Date Signed: 02/01/2018 02:28 PM Electronically Signed By:Corina Phelps LCSW
[2018-02-01] MEDS ORDERED: morphINE SR 60 MG TAB ONE (17:59)
[2018-02-01] MEDS: morphINE SR 60 MG TAB PO SCH (19:22)
[2018-02-01] MEDS ORDERED: morphINE SR 60 MG TAB PO SCH (21:00)
[2018-02-01] MEDS ORDERED: TIOTROPIUM INHALER 18 MCG/DOSE 5 DOSE/MDI IH SCH (21:00)
[2018-02-01] MEDS ORDERED: FLUTICASONE/SALMETER 250/50MCG DISKUS IH SCH (21:00)
[2018-02-01] MEDS: FLUTICASONE/SALMETER 500/50MCG DISKUS IH SCH (21:29)
[2018-02-01] MEDS: DIAZEPAM 10 MG TAB PO SCH (22:40)
[2018-02-02] MEDS: oxyCODONE IR 5 MG TAB PO PRN ×4 (00:06→19:08)
[2018-02-02 05:32] LABS: PLATELET COUNT 216 10^3/uL (150-400)
[2018-02-02] MEDS: IPRATROPIUM/ALBUTEROL 3 ML DEYVIAL IH SCH ×4 (05:37→22:03)
[2018-02-02] MEDS: morphINE SR 60 MG TAB PO SCH ×2 (05:48→17:54)
[2018-02-02] MEDS ORDERED: predniSONE 20 MG TAB PO SCH (09:00)
[2018-02-02] MEDS ORDERED: NON-FORMULARY NEW DRUG (Diltiazem Hcl [Diltiazem 24hr Er] 180 MG) PO SCH (09:00)
[2018-02-02] MEDS: NICOTINE 21 MG/24 HR PATCH TD SCH (09:49)
[2018-02-02] MEDS: DRONABINOL 2.5 MG CAP PO SCH ×3 (09:50→17:54)
[2018-02-02] MEDS: DILTIAZEM CD 180 MG CAP PO SCH (09:50)
[2018-02-02] MEDS: AZITHROMYCIN 250 MG TAB PO SCH (09:51)
[2018-02-02] MEDS: ENOXAPARIN 40 MG/0.4 ML SYR SC SCH (09:53)
[2018-02-02] MEDS: FLUTICASONE/SALMETER 500/50MCG DISKUS IH SCH ×2 (11:50→22:03)
--- NOTE | 2018-02-02 13:52 | HOSPPROG ---
Hospitalist Progress Note Assessment/Plan: # acute on chronic resp failure - seems worse today; # COPD exacerbation - increase steroids today - cont azith, nebs # human metapneumovirus # chronic pain on continuous narcotics - cont lido patch, morphine, valium, zanaflex # pulm nodules - resolved # tobacco use - cessation; nicotine patch Subjective: quite dyspneic today; unsure if he is getting better or worse Objective: Vital Signs Temp Pulse Resp BP Pulse Ox 36.6 C 107 H 18 138/88 H 92 02/02/18 08:00 02/02/18 11:51 02/02/18 11:51 02/02/18 09:50 02/02/18 11:51 Laboratory Results 02/02/18 05:10 02/02/18 05:10 02/01/18 02/02/18 02/03/18 05:59 05:59 05:59 Intake Total 1000 Balance 1000 PT 12.0 SEC (12.0-15.0) 02/01/18 08:00 INR 0.87 (0.83-1.16) 02/01/18 08:00 CT reviewed high risk - Physical Exam Constitutional: other (SOB) Cardiovascular: no murmur, rub, or gallop, tachycardia Respiratory: no respiratory distress, no rales or rhonchi Gastrointestinal: normoactive bowel sounds, soft, non-tender abdomen ICD10 Worksheet Patient Problems: Problems Problem Status Onset Chronic obstructive pulmonary disease with acute exacerbation Acute Back pain Acute Pneumonia Acute Hypoxemia Acute Acute bronchitis Acute
--- NOTE | 2018-02-02 14:21 | PDMN ---
Medical Necessity Medical necessity: change to IP; los>2mn for worsening acute on chronic resp failure, COPD exacerbation; requires increased steroids, continued abx and nebs ; comorbid chronic pain, O2 dependent COPD; per order and progress note 02/02/18
[2018-02-02] MEDS: methylPREDNISolone SOD SUCC 40 MG/ML VIAL IVP SCH ×2 (14:22→17:54)
[2018-02-02] MEDS: SENNOSIDES/DOCUSATE SODIUM TAB PO PRN (20:15)
[2018-02-02] MEDS: DIAZEPAM 10 MG TAB PO SCH (20:15)
[2018-02-03] MEDS: methylPREDNISolone SOD SUCC 40 MG/ML VIAL IVP SCH ×2 (00:18→06:06)
[2018-02-03] MEDS: oxyCODONE IR 5 MG TAB PO PRN ×4 (00:18→18:06)
[2018-02-03] MEDS: PATCH REMOVAL 1 EA PATCH TD SCH (00:42)
[2018-02-03] MEDS ORDERED: LIDOCAINE 4%/MENTHOL 1% PATCH TD PRN (01:00)
[2018-02-03] MEDS: IPRATROPIUM/ALBUTEROL 3 ML DEYVIAL IH SCH ×4 (05:40→21:36)
[2018-02-03] MEDS: morphINE SR 60 MG TAB PO SCH ×2 (06:06→18:06)
[2018-02-03] MEDS: POLYETHYLENE GLYCOL 3350 17 GM PKT PO PRN (08:11)
[2018-02-03] MEDS: NICOTINE 21 MG/24 HR PATCH TD SCH (08:11)
[2018-02-03] MEDS: DRONABINOL 2.5 MG CAP PO SCH ×3 (08:12→18:06)
[2018-02-03] MEDS: DILTIAZEM CD 180 MG CAP PO SCH (08:12)
[2018-02-03] MEDS: AZITHROMYCIN 250 MG TAB PO SCH (08:13)
[2018-02-03] MEDS: ENOXAPARIN 40 MG/0.4 ML SYR SC SCH (08:16)
--- NOTE | 2018-02-03 10:10 | HOSPPROG ---
Hospitalist Progress Note Assessment/Plan: # acute on chronic resp failure - improved, still not at baseline # COPD exacerbation - restart pred 60 daily, stop steroids IV - cont azith, nebs # human metapneumovirus - supportive care, precautions # chronic pain on continuous narcotics - cont lido patch, morphine, valium, zanaflex # pulm nodules - resolved # tobacco use - plans cessation; nicotine patch Subjective: breathing feels better today Objective: Vital Signs Temp Pulse Resp BP Pulse Ox 36.8 C 99 18 128/77 H 92 02/03/18 07:30 02/03/18 08:12 02/03/18 07:30 02/03/18 08:12 02/03/18 07:30 02/02/18 02/03/18 02/04/18 05:59 05:59 05:59 Intake Total 2300 Balance 2300 PT 12.0 SEC (12.0-15.0) 02/01/18 08:00 INR 0.87 (0.83-1.16) 02/01/18 08:00 mod risk - Physical Exam Constitutional: other (still somewhat dyspneic) Cardiovascular: regular rate and rhythym, no murmur, rub, or gallop Respiratory: no rales or rhonchi, respiratory distress (mild), other (improved air movement, however diminished), No bronchial breath sounds Gastrointestinal: soft, non-tender abdomen, no palpable masses ICD10 Worksheet Patient Problems: Problems Problem Status Onset Chronic obstructive pulmonary disease with acute exacerbation Acute Back pain Acute Pneumonia Acute Hypoxemia Acute Acute bronchitis Acute
[2018-02-03] MEDS: FLUTICASONE/SALMETER 500/50MCG DISKUS IH SCH ×2 (10:23→20:22)
[2018-02-03] MEDS: predniSONE 20 MG TAB PO SCH (13:26)
--- NOTE | 2018-02-03 16:56 | ASMTCMCOM ---
CM Note CM Note Notes: Reviewed chart and discussed w/RN. Pt lives at home w/ who is also sick and admitted to hosp. Anticipate dc home when medically stable. [facility] info given to pt. CM available if needs arise. Date Signed: 02/03/2018 04:56 PM Electronically Signed By:Jade Proctor RN
[2018-02-03] MEDS: DIAZEPAM 10 MG TAB PO SCH (20:22)
[2018-02-04] MEDS: PATCH REMOVAL 1 EA PATCH TD SCH (00:42)
[2018-02-04] MEDS: IPRATROPIUM/ALBUTEROL 3 ML DEYVIAL IH SCH ×4 (05:33→20:35)
[2018-02-04] MEDS: morphINE SR 60 MG TAB PO SCH ×2 (05:54→18:04)
[2018-02-04] MEDS: oxyCODONE IR 5 MG TAB PO PRN ×4 (05:57→18:04)
[2018-02-04] MEDS: NICOTINE 21 MG/24 HR PATCH TD SCH (08:25)
[2018-02-04] MEDS: POLYETHYLENE GLYCOL 3350 17 GM PKT PO PRN (08:25)
[2018-02-04] MEDS: DRONABINOL 2.5 MG CAP PO SCH ×3 (08:26→18:04)
[2018-02-04] MEDS: AZITHROMYCIN 250 MG TAB PO SCH (08:26)
[2018-02-04] MEDS: predniSONE 20 MG TAB PO SCH (08:26)
[2018-02-04] MEDS: DILTIAZEM CD 180 MG CAP PO SCH (08:26)
[2018-02-04] MEDS: ENOXAPARIN 40 MG/0.4 ML SYR SC SCH (08:32)
[2018-02-04] MEDS: FLUTICASONE/SALMETER 500/50MCG DISKUS IH SCH ×2 (10:31→20:36)
[2018-02-04] MEDS: SENNOSIDES/DOCUSATE SODIUM TAB PO PRN (12:00)
--- NOTE | 2018-02-04 13:04 | HOSPPROG ---
Hospitalist Progress Note Assessment/Plan: # acute on chronic resp failure - continues to improve, but still not at baseline # COPD exacerbation - restart pred 60 daily, stop steroids IV - cont azith, nebs - cont advair, consider spiriva on dc # human metapneumovirus - supportive care, precautions # chronic pain on continuous narcotics - cont lido patch, morphine, valium, zanaflex # pulm nodules - resolved # tobacco use - plans cessation; nicotine patch Subjective: overall improved, still quite weak Objective: Vital Signs Temp Pulse Resp BP Pulse Ox 36.6 C 91 18 136/83 H 94 02/04/18 11:16 02/04/18 11:16 02/04/18 11:16 02/04/18 11:16 02/04/18 11:16 02/03/18 02/04/18 02/05/18 05:59 05:59 05:59 Intake Total 2300 600 Balance 2300 600 PT 12.0 SEC (12.0-15.0) 02/01/18 08:00 INR 0.87 (0.83-1.16) 02/01/18 08:00 - Physical Exam Constitutional: no apparent distress Cardiovascular: regular rate and rhythym, no murmur, rub, or gallop, other ( diminished S1S2) Respiratory: respiratory distress (mild/mod), other (diminished BS bilat; ), No expiratory wheeze, No inspiratory crackles Gastrointestinal: soft, non-tender abdomen, no palpable masses ICD10 Worksheet Patient Problems: Problems Problem Status Onset Chronic obstructive pulmonary disease with acute exacerbation Acute Back pain Acute Pneumonia Acute Hypoxemia Acute Acute bronchitis Acute
[2018-02-04] MEDS: DIAZEPAM 10 MG TAB PO SCH (20:34)
[2018-02-05] MEDS: oxyCODONE IR 5 MG TAB PO PRN ×3 (00:07→12:45)
[2018-02-05] MEDS: PATCH REMOVAL 1 EA PATCH TD SCH (02:00)
[2018-02-05] MEDS: IPRATROPIUM/ALBUTEROL 3 ML DEYVIAL IH SCH ×2 (04:07→09:39)
[2018-02-05 04:38] VITALS: RESP 20
[2018-02-05] MEDS: morphINE SR 60 MG TAB PO SCH (05:07)
[2018-02-05] MEDS: ENOXAPARIN 40 MG/0.4 ML SYR SC SCH (08:08)
[2018-02-05] MEDS: NICOTINE 21 MG/24 HR PATCH TD SCH (08:08)
[2018-02-05] MEDS: predniSONE 20 MG TAB PO SCH (08:10)
[2018-02-05] MEDS: DILTIAZEM CD 180 MG CAP PO SCH (08:10)
[2018-02-05] MEDS: DRONABINOL 2.5 MG CAP PO SCH ×2 (08:11→12:50)
[2018-02-05] MEDS: AZITHROMYCIN 250 MG TAB PO SCH (08:11)
[2018-02-05] MEDS: FLUTICASONE/SALMETER 500/50MCG DISKUS IH SCH (09:39)
[2018-02-05 11:15] VITALS: BP 148/89; PULSE 100; TEMP 97.6; O2SAT 94
--- NOTE | 2018-02-05 15:50 | GDS ---
[f rep st] DISCHARGE SUMMARY DISCHARGE DIAGNOSES: Include: 1. Acute chronic obstructive pulmonary disease exacerbation triggered by viral upper respiratory inf ection. 2. Uqioc-et-uydgvib hypoxic respiratory failure secondary to chronic obstructive pulmonary disease. 3. Acute human metapneumovirus infection. 4. Chronic pain with continuous narcotics. 5. Tobacco dependence. HISTORY OF PRESENT ILLNESS: This is a 57-year-old male with long-standing COPD (oxygen dependent), w ho presents with shortness of breath. For details of the patient's initial presentation, please see the history and physical dated 02/01/2018. CONSULTATIVE SERVICES: None. PROCEDURES: On 02/01/2018, patient had a CT of the chest that shows emphysema, chronic bronchitis, a nd previously resolved consolidation of the lung from 2017. HOSPITAL COURSE BY ISSUE: Nelym-zv-mhufyfn hypoxic respiratory failure thought secondary to COPD exa cerbation triggered by human metapneumovirus. Patient was admitted and placed on steroids, inhaled b eta agonists, and azithromycin. He was slow to improve, but on the day of disposition is closer to h is baseline oxygen requirements and transitioned to oral prednisone and will complete a long taper in the outpatient setting. Additionally, complete course of azithromycin. The patient is to follow in the outpatient setting with his primary care provider for post disposition followup. MEDICATIONS AT THE TIME OF TRANSFER: Please reference the med rec printed on 02/05/2018. APPOINTMENTS: 1. Include with his PCP in the next 7-10 days for a check of his pulmonary status as he is nearing c ompletion of his prednisone taper for evaluation on its discontinuation at that time. 2. Pulmonary Medicine at [facility] per his pre-defined schedule. PENDING STUDIES: At the time of this dictation: Include blood cultures drawn on 02/01/2018, which a re preliminary no growth to date. MEDICATIONS AT DISPOSITION: Please reference the med rec printed on 02/05/2018. TIME SPENT: I spent greater than 30 minutes in the planning and coordination of this discharge. /[id number]/MODL
== END 2018-02-05 13:42 | disposition home or self-care (01) | DRG 190 ==
LOC: EDUNIT# → F2N 09:29 → F3E 17:42 → OBSVTOIN 02-02 13:45
PROVIDERS: ADMIT Internal Medicine; ATTEND Hospitalist
DX: J44.1 Chronic obstructive pulmonary disease with (acute) exacerbation (principal); J96.01 Acute respiratory failure with hypoxia; J12.3 Human metapneumovirus pneumonia; J44.0 Chronic obstructive pulmonary disease with (acute) lower respiratory infection; R91.1 Solitary pulmonary nodule; F11.20 Opioid dependence, uncomplicated; M54.5 Low back pain; M54.2 Cervicalgia; I10 Essential (primary) hypertension; M81.0 Age-related osteoporosis without current pathological fracture; F17.210 Nicotine dependence, cigarettes, uncomplicated; Z99.81 Dependence on supplemental oxygen; Z79.51 Long term (current) use of inhaled steroids
CPT/HCPCS: 96365; G0378; J1650; J2920; J3475; J7512; Q9967

== ENCOUNTER → 2018-02-17 | Outpatient (CLI) | payer MEDICAID | LOC: FIMAGING 12:40 | DX: N50.89 Other specified disorders of the male genital organs (principal); N43.3 Hydrocele, unspecified ==

== ENCOUNTER 2018-04-04 11:09 | Emergency (ER) | payer MEDICAID ==
--- NOTE | 2018-04-04 12:00 | EDPHY ---
H & P Stated Complaint: R rib pain Time Seen by Provider: 04/04/18 11:57 - Personal History Current Tetanus/Diphtheria Vaccine: Yes Current Tetanus Diphtheria and Acellular Pertussis (TDAP): Yes Tetanus Vaccine Date: < 10 years - Medical/Surgical History Hx Asthma: No Hx Chronic Respiratory Disease: Yes Hx Diabetes: No Hx Cardiac Disease: No Hx Renal Disease: No Hx Cirrhosis: No Hx Alcoholism: No Hx HIV/AIDS: No Hx Splenectomy or Spleen Trauma: No Other PMH: PMH: COPD, emphysema, HTN, Dupuyten's contracture, chronic back and neck pain, surgery both feet, PNA, osteoporosis - Social History Smoking Status: Current every day smoker Constitutional: Initial Vital Signs Temperature (C) 36.6 C 04/04/18 11:24 Heart Rate 82 04/04/18 11:24 Respiratory Rate 20 04/04/18 11:24 Blood Pressure 151/134 H 04/04/18 11:24 O2 Sat (%) 91 L 04/04/18 11:24 O2 Delivery Mode Nasal Cannula O2 (L/minute) 3 Allergies/Adverse Reactions: HAYFEVER Allergy (Mild, Uncoded 01/29/18 14:45) NASAL CONGESTION Home Medications: Medication Instructions Recorded Albuterol [Proventil Inhaler HFA 2 puffs IH Q4 PRN 01/19/16 (*)] DILTIAZEM HCL [DILTIAZEM 24HR ER] 180 mg PO DAILY 01/19/16 Diazepam [Valium 10 MG (*)] 10 mg PO HS 01/19/16 Tizanidine HCl [Zanaflex] 4 mg PO TID PRN 01/19/16 Calcium Carbonate [Oyster Shell 500 mg PO TID 02/08/17 Calcium 500 mg (*)] Cholecalciferol Vit D3 [Vitamin D3 1,000 units PO DAILY 02/08/17 (*)] Lidocaine [Lidoderm] 1 - 2 each TP DAILY PRN 02/08/17 morphINE SR [MS Contin/Oramorph 60 1 tab PO BID 02/08/17 mg (*)] Dronabinol [Marinol 2.5 MG (*)] 2.5 mg PO TIDMEAL 10/09/17 Ibuprofen [Motrin (*)] 800 mg PO BID PRN 10/09/17 Multivitamins [Multivitamin (*)] 1 each PO DAILY 10/09/17 oxyCODONE IR [Oxycodone Ir (*)] 20 mg PO Q6HRS PRN 10/09/17 Fluticasone/Salmeter 500/50Mcg 1 puffs IH BID 02/01/18 [Advair 500/50 (*)] Ipratropium/Albuterol [Duoneb (*)] 3 ml IH QID PRN 02/01/18 Ipratropium/Albuterol [Duoneb (*)] 3 ml IH QID #120 deyvial 02/05/18 Hydrocodone/APAP 5/325 [[place] 1 - 2 each PO Q4-6PRN PRN #20 tab 04/04/18 5/325] Ibuprofen [Motrin] 800 mg PO Q8 #20 tab 04/04/18 Medical Decision Making - Diagnostics Imaging Results: Imaging Impressions Ribs w/Chest X-Ray 04/04/18 12:03 Impression: 1. Negative Right rib series. 2. No acute abnormality within the chest. 3. Relatively stable mild prominent interstitial markings involving the lung bases along with stable hyperexpanded lungs with underlying emphysema and COPD. Imaging: Discussed imaging studies w/ call center director Radiologist, I viewed and interpreted images myself ED Course/Re-evaluation: CHIEF COMPLAINT: Right rib pain HISTORY OF PRESENT ILLNESS: 58-year-old gentleman with COPD. He denies any trauma but states that he has right lateral and right posterior rib pain. He also feels a bump on the rib along his back. He has history of osteoporosis and has had a compression fracture from lifting some items. He denies any trauma, denies any recent cough fever chills or illness, denies any other history which might be related to this chest pain. It is sharp and it is reproducible when he coughs bends turns sneezes or pushes on the rib. His is in the room and concurs REVIEW OF SYSTEMS: A 10 point review of systems was performed and is negative with the exception of the elements mentioned in the history of present illness. PHYSICAL EXAM: HR, BP, O2 Sat, RR. Temp noted General Appearance: Alert, well hydrated, appropriate, and non-toxic appearing. Head: Atraumatic without scalp tenderness or obvious injury Eyes: Pupils equal, round, reactive to light and accommodation, EOMI, no trauma , no injection. Ears: Clear bilaterally, no perforation, normal landmarks Nose: Atraumatic, no rhinorrhea, clear. Throat: There is no erythema or exudates, no lesions, normal tonsils, mucus membranes moist. Neck: Supple, 2+ carotid upstroke, nontender, no lymphadenopathy. Respiratory: No retractions, no distress, no wheezes, and no accessory muscle use. Lungs are clear to auscultation bilaterally. Cardiovascular: Regular rate and rhythm, no murmurs, rubs, or gallops. Bilateral carotid, radial, dorsalis pedis, and posterior tibial pulses intact. Good capillary refill all extremities. Gastrointestinal: Abdomen is soft, nontender, non-distended, no masses, no rebound, no guarding, no peritoneal signs. Musculoskeletal: Lateral posterior rib pain about mid thoracic. A lump along the rib on the right posterior also. Otherwise, Normal active ROM of all extremities, atraumatic. Neurological: Alert, appropriate, and interactive. The patient has normal DTRs and non-focal cranial nerves, motor, sensory, and cerebellar exam. Skin: No rashes, good turgor, no nodules on palpation. Past medical history: COPD Past surgical history: Noncontributory Family history: Noncontributory Social history: , smokes, does not abuse alcohol or drugs, employed DIAGNOSTICS/PROCEDURES/CRITICAL CARE TIME: Study: PA and 2 rib series on the right Indication: Trauma Results: After viewing the images myself on the PACS system. My interpretation of the images is: inflammatory intraparenchymal changes, new right 9th rib fracture. The radiologist interpretation is pending at the time of this dictation. I have discussed the above x-rays with the radiologist. DIFFERENTIAL DIAGNOSIS: The differential diagnosis for the patient's chest pain included but was not limited to myocardial ischemia, pulmonary embolus, chest wall pain, pleural inflammation, and pulmonary infectious causes. MEDICAL DECISION MAKING: This patient seems to have a musculoskeletal rib or chest wall injury. X-rays are pending. The patient is in no distress. The patient is not hypoxemic 1357: Spoke with radiologist, patient has inflammatory intraparenchymal changes and will need a follow up CT in 3 months. He also has a new right 9th rib fracture which is most likely due to coughing. 1359: Reassessed patient and discussed imaging findings. I have advised him to follow up with his PCP. Return precautions provided; patient is comfortable with this plan. - Data Points Laboratory Results: 04/04/18 12:57 POC Hgb 16.3 gm/dL gm/dL (13.7-17.5) POC Hct 48 % % (40-51) POC Sodium 137 mEq/L mEq/L (135-145) POC Potassium 4.1 mEq/L mEq/L (3.3-5.0) POC Chloride 96 mEq/L L mEq/L (97-110) POC BUN < 3 mg/dL L mg/dL (7-23) POC Creatinine 0.6 mg/dL L mg/dL (0.7-1.3) POC Glucose 88 mg/dL mg/dL (70-100) Point of Care Test Results: 04/04/18 12:57 POC Sodium 137 POC Potassium 4.1 POC Chloride 96 L POC BUN < 3 L POC Creatinine 0.6 L POC Glucose 88 Departure - Departure Disposition: Home, Routine, Self-Care Clinical Impression: Rib fracture Qualifiers: Encounter type: initial encounter Rib fracture type: single rib Fracture type: closed Laterality: right Qualified Code(s): S22.31XA - Fracture of one rib, right side, initial encounter for closed fracture Condition: Good Instructions: Rib Fracture (ED) Additional Instructions: 1. Take [place] and Motrin as prescribed. 2. You will need a follow up CT in 3 months for the inflammatory intraparenchymal changes 3. Followup with your primary doctor within 72 hours for reevaluation. 4. Return to the emergency department for fever, worsening pain, shortness of breath or difficulty breathing, abdominal pain, blood in urine or other concerns. Prescriptions: Hydrocodone/APAP 5/325 [[place] 5/325] 1 - 2 each PO Q4-6PRN PRN #20 tab PRN Reason: Pain, Moderate Ibuprofen [Motrin] 800 mg PO Q8 #20 tab
[2018-04-04] MEDS ORDERED: IOPAMIDOL (ISOVUE 370) 100 ML BTL IV ONE (13:00)
[2018-04-04 13:55] VITALS: BP 101/74
== END 2018-04-04 14:02 | disposition home or self-care (01) ==
DX: S22.31XA Fracture of one rib, right side, initial encounter for closed fracture (principal); J44.9 Chronic obstructive pulmonary disease, unspecified; I10 Essential (primary) hypertension; F17.200 Nicotine dependence, unspecified, uncomplicated; X58.XXXA Exposure to other specified factors, initial encounter
CPT/HCPCS: 82947-QW; Q9967

== ENCOUNTER 2018-04-22 14:08 | Emergency (ER) | payer MEDICAID ==
--- NOTE | 2018-04-22 16:59 | EDPHY ---
H & P Time Seen by Provider: 04/22/18 16:40 HPI/ROS: Chief complaint. Back pain HPI. 58-year-old male history of chronic back pain has increased back pain for the past 3-4 days. Patient's called their health provider and asked the provider to provide outpatient order for MRI of the back. This was done today at [facility]. No report was generated. Patient has a history of L2 compression fracture. He has occasional pain shooting down his legs. No leg weakness. No bowel or bladder symptoms. Denies recent injury. Hurts in the same area as he normally has back pain. ROS Constitutional. no fever/chills, no weakness Eyes. no problems with vision ENT. no sore throat, no nasal drainage Cardiovascular. no chest pain Respiratory. no shortness of breath, no cough Abdominal. no abdominal pain, no nausea/vomiting, no diarrhea . no problems urinating MS. Low back pain Skin. no rash Lymph. no swollen glands Neuro. no headache, no dizziness, no difficulty walking or with speech Past Medical/Surgical History: COPD, hypertension, dipped twins contracture, chronic back and neck pain, osteoporosis Social History: , daily smoker, no alcohol Smoking Status: Current every day smoker Physical Exam: General Appearance: Alert well-developed male mild distress vital signs are stable Eyes: Pupils equal and round no pallor or injection. ENT, Mouth: Mucous membranes are moist. Respiratory: There are no retractions, lungs are clear to auscultation. Cardiovascular: Regular rate and rhythm. Gastrointestinal: Abdomen is soft and nontender, no masses, bowel sounds normal. Neurological: Awake and alert, sensory and motor exams grossly normal. Deep tendon reflexes are symmetrical. Sensation is normal. Great toe strength is normal. Skin: Warm and dry, no rashes. Musculoskeletal: Neck is supple nontender. Tenderness in the lower lumbar area. No obvious swelling or deformity. Extremities symmetrical, full range of motion. Psychiatric: Patient is oriented X 3, there is no agitation. Constitutional: Initial Vital Signs Temperature (C) 36.7 C 04/22/18 14:19 Heart Rate 83 04/22/18 14:19 Respiratory Rate 20 04/22/18 14:19 Blood Pressure 144/79 H 04/22/18 14:19 O2 Sat (%) 87 L 04/22/18 14:19 O2 Delivery Mode Nasal Cannula O2 (L/minute) 3 Allergies/Adverse Reactions: HAYFEVER Allergy (Mild, Uncoded 01/29/18 14:45) NASAL CONGESTION Home Medications: Medication Instructions Recorded Albuterol [Proventil Inhaler HFA 2 puffs IH Q4 PRN 01/19/16 (*)] DILTIAZEM HCL [DILTIAZEM 24HR ER] 180 mg PO DAILY 01/19/16 Diazepam [Valium 10 MG (*)] 10 mg PO HS 01/19/16 Tizanidine HCl [Zanaflex] 4 mg PO TID PRN 01/19/16 Calcium Carbonate [Oyster Shell 500 mg PO TID 02/08/17 Calcium 500 mg (*)] Cholecalciferol Vit D3 [Vitamin D3 1,000 units PO DAILY 02/08/17 (*)] Lidocaine [Lidoderm] 1 - 2 each TP DAILY PRN 02/08/17 morphINE SR [MS Contin/Oramorph 60 1 tab PO BID 02/08/17 mg (*)] Dronabinol [Marinol 2.5 MG (*)] 2.5 mg PO TIDMEAL 10/09/17 Ibuprofen [Motrin (*)] 800 mg PO BID PRN 10/09/17 Multivitamins [Multivitamin (*)] 1 each PO DAILY 10/09/17 oxyCODONE IR [Oxycodone Ir (*)] 20 mg PO Q6HRS PRN 10/09/17 Fluticasone/Salmeter 500/50Mcg 1 puffs IH BID 02/01/18 [Advair 500/50 (*)] Ipratropium/Albuterol [Duoneb (*)] 3 ml IH QID PRN 02/01/18 Ipratropium/Albuterol [Duoneb (*)] 3 ml IH QID #120 deyvial 02/05/18 Hydrocodone/APAP 5/325 [[place] 1 - 2 each PO Q4-6PRN PRN #20 tab 04/04/18 5/325] Ibuprofen [Motrin] 800 mg PO Q8 #20 tab 04/04/18 Prolia 04/22/18 Medical Decision Making - Diagnostics Imaging Results: MRI reviewed by me and discussed with Dr. S1 knee shows old L2 compression fracture. There is a new T12 compression fracture with some mild retropulsion posteriorly. Procedures: Ibuprofen orally ED Course/Re-evaluation: I consulted and discussed the case with Dr. Shaffer for Neurosurgery. He reviewed the MRI. He recommends Kiki brace and follow up in the clinic. Differential Diagnosis: I considered fracture, cauda equina syndrome, muscular back pain. - Data Points Medications Given: Discontinued Medications Ibuprofen (Motrin) 600 mg PO EDNOW ONE Stop: 04/22/18 18:05 Last Admin: 04/22/18 18:40 Dose: 600 mg Departure - Departure Disposition: Home, Routine, Self-Care Clinical Impression: T12 compression fracture Condition: Good Instructions: Vertebral Compression Fracture (ED) Additional Instructions: Wear the back brace while you are up and walking. May remove it for sleep and to shower. Continue regular medications. Return for leg weakness, bowel or bladder symptoms. Follow-up with Neurosurgery. Call Wednesday for an appointment Referrals: [facility] [Other] - As per Instructions Ronan Shaffer MD [Medical Doctor] - 5-7 days, call for appt.
[2018-04-22] MEDS ORDERED: IBUPROFEN 600 MG TAB PO ONE (18:04)
[2018-04-22 18:42] VITALS: BP 175/97
== END 2018-04-22 20:17 | disposition home or self-care (01) ==
DX: M48.54XA Collapsed vertebra, not elsewhere classified, thoracic region, initial encounter for fracture (principal); J44.9 Chronic obstructive pulmonary disease, unspecified; I10 Essential (primary) hypertension; F17.200 Nicotine dependence, unspecified, uncomplicated

== ENCOUNTER 2018-07-25 12:00 | Emergency (ER) | payer MEDICAID ==
[2018-07-25] MEDS ORDERED: methylPREDNISolone SOD SUCC 125 MG/2 ML VIAL IVP ONE (13:26)
[2018-07-25] MEDS ORDERED: MAGNESIUM SULF 2 GM/WATER 50 ML IV ONE (13:26)
[2018-07-25] MEDS ORDERED: NS 1,000 ML IV ONE (13:26)
[2018-07-25] MEDS ORDERED: IPRATROPIUM/ALBUTEROL 3 ML DEYVIAL IH ONE (13:26)
--- NOTE | 2018-07-25 13:33 | EDPHY ---
H & P Time Seen by Provider: 07/25/18 13:07 HPI/ROS: HPI Worsening cough, shortness of breath. 58-year-old male by private vehicle with his . This patient has a long history of COPD. He still smokes. He reports that his was diagnosed with pneumonia about a week ago. She was placed on prednisone as well as azithromycin. He reports over the last 3 days he has had worsening cough. He describes this as productive of a thick yellowish sputum. Denies fever. He reports that he was much more short of breath today and was having a difficult time breathing. He used his albuterol nebulizer as well as Advair at home this morning without significant relief. ROS: Constitutional: No fever, no chills. As above. Eyes: No discharge. No changes in vision. ENT: No sore throat. No nasal congestion or rhinorrhea. Respiratory: As above. Cardiac: No chest pain, no palpitations. Gastrointestinal: No abdominal pain, no vomiting, no diarrhea. Genitourinary: No hematuria. No dysuria or increased frequency with urination. Musculoskeletal: No back pain. No neck pain. No myalgias or arthralgias. Skin: No rashes. Neurological: No headache. No focal weakness or altered sensation. Past medical history: COPD, hypertension, chronic neck and back pain, pneumonia , osteoporosis, spinal compression fractures. Social history: Smoker. Denies alcohol. No IV drugs or street drugs. Here with his . Physical Exam: General Appearance: Alert, tremulous, he states this is from his albuterol. This patient is responding to questions appropriately and in full sentences. Intermittent wet sounding cough. This patient appears well-hydrated and well- nourished. Eyes: Pupils equal and round no pallor or injection. No lid edema, erythema or injection. ENT, Mouth: Mucous membranes are moist. The pharyngeal tissues are unremarkable. No edema or swelling. No asymmetry suggestive of abscess. No erythema or exudates. Respiratory: There are no retractions, diminished air movement throughout. No crackles. No rhonchi or wheezing noted. No tachypnea at rest. Intermittent wet sounding cough. Cardiovascular: Regular rate and rhythm. Mildly tachycardic. No murmur appreciated. Gastrointestinal: Abdomen is soft and nontender, no masses, bowel sounds normal. No focal tenderness at McBurney's point. No Fournier sign. Neurological: Motor sensory function is grossly intact. Cranial nerves are normal. Gait is normal. Skin: Warm and dry, no rashes. Musculoskeletal: Neck is supple and nontender. No cervical, submandibular, submental lymphadenopathy. Extremities are symmetrical. All joints range without pain or impingement. Psychiatric: No agitation. No depression. Database: EKG: Imaging: Chest x-ray PA and lateral; the cardiac mediastinal silhouette is unremarkable. No evidence of infiltrate or pneumothorax. Changes consistent with COPD and chronic lung disease. No acute cardiopulmonary disease process noted. Interpreted by me and x-ray discussed with staff radiologist Dr. Osmel Mandujano. Procedures: Emergency department course: Triage vital signs reviewed. Patient is tachycardic in the low 120s, mildly hypertensive. Vital signs are otherwise normal. Pulse oximetry is 94% to 96% on room air. IV established. Patient placed on a groundwater monitoring technician. He was started on IV normal saline with 1 L to be given over the next hour. He will be started on albuterol/Atrovent nebulizers, 9 mL [id number], he will be given 2 g of IV magnesium and 125 mg of IV Solu-Medrol. Chest x-ray to be obtained. 2:30 p.m., the patient was re-evaluated. At this time is resting comfortably. Blood pressure is 108/84. Room air pulse oximetry is 94%. Heart rate 90. I discussed the results of his x-ray with him. I feel this is likely a viral process. However, given his history of COPD as well as his 's recent respiratory illness and improvement with azithromycin. He will be started on azithromycin. He feels comfortable going home and I feel he is safe for discharge with his . He does have nebulized albuterol at home and does not require new prescriptions for this medication. He will be prescribed a 4 day course of prednisone as well at 60 mg a day. Follow-up and return to emergency department precautions have been thoroughly reviewed with him. All of his questions were answered. He was discharged from the emergency department in good condition with his who is driving. Differential Diagnosis: The differential diagnosis on this patient includes but is not limited to viral bronchitis, pneumonia, COPD exacerbation. CHF, PE, acute coronary syndrome unlikely. This represents a partial list of diagnoses considered. These considerations are based on history, physical exam, past history, reassessment and diagnostic testing. Smoking Status: Light smoker Constitutional: Initial Vital Signs Temperature (C) 36.8 C 07/25/18 12:04 Heart Rate 121 H 07/25/18 12:04 Respiratory Rate 18 07/25/18 12:04 Blood Pressure 149/88 H 07/25/18 12:04 O2 Sat (%) 96 07/25/18 12:04 O2 Delivery Mode Nasal Cannula O2 (L/minute) 4 Allergies/Adverse Reactions: HAYFEVER Allergy (Mild, Uncoded 07/25/18 12:08) NASAL CONGESTION Home Medications: Medication Instructions Recorded Albuterol [Proventil Inhaler HFA 2 puffs IH Q4 PRN 01/19/16 (*)] DILTIAZEM HCL [DILTIAZEM 24HR ER] 180 mg PO DAILY 01/19/16 Diazepam [Valium 10 MG (*)] 10 mg PO HS 01/19/16 Tizanidine HCl [Zanaflex] 4 mg PO TID PRN 01/19/16 Calcium Carbonate [Oyster Shell 500 mg PO TID 02/08/17 Calcium 500 mg (*)] Cholecalciferol Vit D3 [Vitamin D3 1,000 units PO DAILY 02/08/17 (*)] Lidocaine [Lidoderm] 1 - 2 each TP DAILY PRN 02/08/17 morphINE SR [MS Contin/Oramorph 60 1 tab PO BID 02/08/17 mg (*)] Dronabinol [Marinol 2.5 MG (*)] 2.5 mg PO TIDMEAL 10/09/17 Ibuprofen [Motrin (*)] 800 mg PO BID PRN 10/09/17 Multivitamins [Multivitamin (*)] 1 each PO DAILY 10/09/17 oxyCODONE IR [Oxycodone Ir (*)] 20 mg PO Q6HRS PRN 10/09/17 Fluticasone/Salmeter 500/50Mcg 1 puffs IH BID 02/01/18 [Advair 500/50 (*)] Ipratropium/Albuterol [Duoneb (*)] 3 ml IH QID PRN 02/01/18 Ipratropium/Albuterol [Duoneb (*)] 3 ml IH QID #120 deyvial 02/05/18 Hydrocodone/APAP 5/325 [[place] 1 - 2 each PO Q4-6PRN PRN #20 tab 04/04/18 5/325] Ibuprofen [Motrin] 800 mg PO Q8 #20 tab 04/04/18 Prolia 04/22/18 Azithromycin [Zithromax] 250 mg PO DAILY #6 tab 07/25/18 predniSONE [prednisone 20mg (RX)] 60 mg PO DAILY #12 tab 07/25/18 Medical Decision Making - Diagnostics Imaging Results: Imaging Impressions Chest X-Ray 07/25/18 13:08 Impression: Grossly stable interstitial prominence without definite evidence of pneumonia. Multiple nodules seen on CT are poorly assessed on radiographs. If this has not been assessed on interval CT as recommended, recommend CT chest. Findings discussed with Dr. Jacky Watkins on July 25, 2018 at 1416 hours. - Data Points Microbiology Results: MICROBIOLOGY 07/25/18 12:10 Nasal, Sinus - Swab Respiratory Panel (PCR) - Final Human Rhinovirus/Enterovirus Medications Given: Discontinued Medications Albuterol/Ipratropium (Duoneb) 9 ml IH EDNOW ONE Stop: 07/25/18 13:27 Last Admin: 07/25/18 13:36 Dose: 9 ml Sodium Chloride (Ns) 1,000 mls @ 0 mls/hr IV ONCE ONE; Wide Open PRN Reason: Protocol Stop: 07/25/18 13:27 Last Admin: 07/25/18 13:37 Dose: 1,000 mls Magnesium Sulfate (Magnesium Sulf 2 Gm (Premix)) 50 mls @ 50 mls/hr IV EDNOW ONE Stop: 07/25/18 14:25 Last Admin: 07/25/18 13:37 Dose: 50 mls Methylprednisolone Sodium Succinate (Solu-Medrol) 125 mg IVP EDNOW ONE Stop: 07/25/18 13:27 Last Admin: 07/25/18 13:37 Dose: 125 mg Departure - Departure Disposition: Home, Routine, Self-Care Clinical Impression: Bronchitis, COPD exacerbation Condition: Good Instructions: COPD (Chronic Obstructive Pulmonary Disease) (ED), Acute Bronchitis (ED) Additional Instructions: Read and follow provided instructions. Follow-up with your primary care physician in 1-2 days for re-evaluation as discussed. Take medication as prescribed. Nebulized albuterol: Use every 2-4 hours while awake for the rest the day. Then every 2-4 hours as needed. Return to the emergency department for worsening symptoms, worsening cough, difficulty breathing or other serious concerns. Referrals: Rebeka Negro [Primary Care Provider] - As per Instructions Prescriptions: Azithromycin [Zithromax] 250 mg PO DAILY #6 tab predniSONE [prednisone 20mg (RX)] 60 mg PO DAILY #12 tab
[2018-07-25 13:57] VITALS: BP 108/84
[2018-07-25] MEDS ORDERED: AZITHROMYCIN 250 MG TAB PO ONE (14:31)
== END 2018-07-25 14:52 | disposition home or self-care (01) ==
DX: J40 Bronchitis, not specified as acute or chronic (principal); J44.1 Chronic obstructive pulmonary disease with (acute) exacerbation; I10 Essential (primary) hypertension; F17.200 Nicotine dependence, unspecified, uncomplicated
CPT/HCPCS: 96365; J2930; J3475

== ENCOUNTER → 2018-12-05 | Outpatient (CLI) | payer MEDICAID | LOC: FIMAGING 13:34 | PROVIDERS: ATTEND Nurse Practitioner Family | DX: Z13.820 Encounter for screening for osteoporosis (principal); M81.0 Age-related osteoporosis without current pathological fracture; Z79.899 Other long term (current) drug therapy; Z87.81 Personal history of (healed) traumatic fracture ==